=== PATIENT | male | born 1970 | race Two or more races ===

== ENCOUNTER 2020-06-11 00:11 | Emergency (ER) | payer OTHER, SELFPAY ==
--- NOTE | 2020-06-11 00:13 | ECG_ITS ---
Test Reason : CHEST PAIN Blood Pressure : / mmHG Vent. Rate : 090 BPM Atrial Rate : 090 BPM P-R Int : 130 ms QRS Dur : 098 ms QT Int : 374 ms P-R-T Axes : 061 -65 048 degrees QTc Int : 457 ms Normal sinus rhythm Left axis deviation Abnormal ECG When compared with ECG of 24-FEB-2019 00:32, No significant changes seen Referred By: Rick Alvarez Electronically Signed By:KATHERINE VIDAL MD
[2020-06-11 02:55] LABS: Carbon Dioxide 29 mmol/L (22-29); Potassium 4.5 mmol/l (3.3-5.1); Sodium 139 mmol/L (135-145)
[2020-06-11 02:56] LABS: Anion Gap 12 (12-20); Blood Urea Nitrogen 13 mg/dL (9-16); Chloride 103 mmol/L (96-108); Estimated Glomerular Filt Rate > 60; Glucose Random 108 mg/dL (60-115)
[2020-06-11 02:59] LABS: Troponin-I High Sensitivity < 3.5 ng/L (<3.5-35.0)
[2020-06-11 04:38] LABS: MANUAL DIFF FLAG NO
[2020-06-11 04:47] LABS: Basophils Percent Auto 0.4 % (0-2); Eosinophils Absolute Auto 0.5 X10*3/uL (0.0-0.4); Eosinophils Percent Auto 5.4 % (0-4); Hematocrit 46.8 % (42-52); Hemoglobin 15.5 g/dl (14.0-18.0); Imm Gran Abs Auto 0.05 X10*3/uL (0.00-0.03); Imm Gran Pct Auto 0.5 % (0.0-0.4); Lymphocytes Absolute Auto 2.3 X10*3/uL (1.2-4.9); Mean Corpuscular HGB Conc 33.1 g/dl (31.0-36.0); Mean Corpuscular Hemoglobin 26.7 pg (27.0-33.0); Mean Corpuscular Volume 80.7 fL (80-98); Mean Platelet Volume 10.6 fL (9.4-12.4); Monocytes Absolute Auto 0.8 X10*3/uL (0.1-1.2); Monocytes Percent Auto 8.6 % (2-11); Neutrophils Absolute Auto 6.1 X10*3/uL (2.0-8.3); Neutrophils Percent Auto 62.1 % (45-73); Platelet Count 176 X10*3/uL (160-400); White Blood Count 9.8 X10*3/uL (4.8-10.8)
== END 2020-06-11 02:00 | disposition home or self-care (01) ==
LOC: HO.ED 00:33
PROVIDERS: Emergency Provider Emergency Medicine; PCP Internal Medicine
DX: R07.9 Chest pain, unspecified (principal); I10 Essential (primary) hypertension; F41.9 Anxiety disorder, unspecified
CPT/HCPCS: 36415; 80051; 82565; 82947; 84484; 84520; 85025; 93005; 99283

== ENCOUNTER → 2020-08-26 11:55 | Outpatient (REF) | payer OTHER, SELFPAY ==
--- NOTE | 2020-08-26 11:57 | CA_ITS ---
Acquisition Time: 2020-08-26 10:52:43 Total Exercise Time: 00:06:17 Test Indications: CHEST PAIN Medications: LISINOPRIL METFORMIN ALBUTEROL Protocol: KENAN Max HR: 150 BPM 87% of Pred: 172 BPM Max BP: 140/080 mmHG Max Work Load: 7.4 METS exercise stress test using Kenan protocol, total of 6 min 17 sec. METS 7.4, and MAPHR up to 87 %. Pt tolerated well. Pt reports to be SOB (smokes one pack of cogaretts a day). Denies any CP. EKG without any arrhythmias, no ischemic changes seen during exercise or in recovery. Normotensive response to exercise. Test reviewed with Dr. Kimble. Referred By: Pari Orlando Overread By: Brijesh Okeefe
== END ==
LOC: HO.CARD 11:55
PROVIDERS: PCP Internal Medicine; Visit Provider Internal Medicine
DX: R07.9 Chest pain, unspecified (principal)
CPT/HCPCS: 93017

== ENCOUNTER 2020-11-18 07:07 | Outpatient (REF) | payer OTHER, SELFPAY ==
[2020-11-18 08:03] LABS: Alanine Aminotransferase 42 U/L (0-40); Albumin Level 4.7 g/dL (3.5-5.0); Alkaline Phosphatase 74 U/L (39-117); Anion Gap 12 (12-20); Aspartate Amino Transferase 21 U/L (5-37); Bilirubin Total 0.5 mg/dL (0.0-1.0); Blood Urea Nitrogen 12 mg/dL (9-16); Calcium 9.2 mg/dL (8.4-10.2); Carbon Dioxide 29 mmol/L (22-29); Chloride 102 mmol/L (96-108); Cholesterol 179 mg/dL; Estimated Glomerular Filt Rate > 60; Glucose Fasting 133 mg/dL (60-99); HDL Cholesterol 33 mg/dL; LDL Cholesterol Calculated 110 mg/dl; Potassium 4.3 mmol/L (3.3-5.1); Sodium 139 mmol/L (135-145); Total Protein 7.5 g/dL (6.5-8.0); Triglycerides 180 mg/dL
[2020-11-18 08:06] LABS: Creatinine Urine 190.98 mg/dL; Microalbum/Creatinine Ratio Ur 11.5 ug/mg cr
== END 2020-11-18 07:08 | disposition home or self-care (01) ==
LOC: HO.LAB 07:07
PROVIDERS: PCP Internal Medicine; Visit Provider Internal Medicine
DX: E11.9 Type 2 diabetes mellitus without complications (principal)
CPT/HCPCS: 36415; 80053; 80061; 82043

== ENCOUNTER 2021-04-20 01:10 | Emergency (ER) | payer OTHER, SELFPAY ==
[2021-04-20 01:25] VITALS: BP 140/103; PULSE 106; RESP 16; TEMP 36.8; O2SAT 97; BMI 35.4
--- NOTE | 2021-04-20 04:28 | ED.SKABFB ---
HPI - Skin/Abscess/Foreign Bdy General Chief complaint: Skin/Abscess/Foreign Body Stated complaint: cyst Time Seen by Provider: 04/20/21 03:41 Source: patient Mode of arrival: ambulatory Limitations: no limitations History of Present Illness HPI narrative: Patient with history of hydradenitis suppurative with multiple ER visits for abscesses this time noticed swelling in left armpit for last 4 days getting worse. No fever or chills Related Data Home Medications Medication Instructions Recorded Confirmed lancets 33 gauge #100 ea 08/17/20 08/17/20 Previous Rx's Medication Instructions Recorded blood sugar diagnostic (FreeStyle #50 ea 06/18/20 Lite Strips) lancets 28 gauge (FreeStyle #100 ea 06/18/20 Lancets) clotrimazole-betamethasone 1 1 appl TOPICAL BID 14 Days #15 g 08/17/20 %-0.05 % topical cream hydroxyzine HCl 50 mg tablet 50 mg PO Q6H #120 tab 11/12/20 dulaglutide 0.75 mg/0.5 mL 0.75 mg SUBCUT QWEEK 30 Days #2.5 11/28/20 subcutaneous pen injector ml ([facility]) lisinopril 5 mg tablet 5 mg PO DAILY #30 tab 11/29/20 metformin 1,000 mg tablet 1,000 mg PO BID #60 tab 11/29/20 omeprazole 20 mg capsule,delayed 20 mg PO DAILY #30 cap 11/29/20 release albuterol sulfate 90 mcg/actuation 2 puff INHALATION Q4-6H PRN #18 g 03/23/21 aerosol inhaler trazodone 50 mg tablet 50 mg PO BEDTIME PRN #30 tab 04/05/21 atorvastatin 20 mg tablet 20 mg PO DAILY 90 Days #90 tab 04/17/21 cephalexin 500 mg capsule 500 mg PO QID 10 Days #40 cap 04/20/21 doxycycline hyclate 100 mg tablet 100 mg PO BID #20 tab 04/20/21 fluconazole 100 mg tablet 100 mg PO DAILY #14 tab 04/20/21 (Diflucan) Allergies Allergy/AdvReac Type Severity Reaction Status Date / Time aspirin [ASPIRIN] Allergy Severe ANAPHYLAXIS Verified 08/17/20 15:13 ibuprofen [IBUPROFEN] Allergy Severe ANAPHYLAXIS Verified 08/17/20 15:13 acetaminophen [From Vicodin] Allergy Unknown chest pains Verified 08/17/20 15:13 hydrocodone [From Vicodin] Allergy Unknown chest pains Verified 08/17/20 15:13 Review of Systems Review of Systems: Yes all other systems are reviewed and are negative [facility] Past Medical History Medical History Chest pain Diabetes mellitus Essential hypertension GERD (gastroesophageal reflux disease) Surgical History History of appendectomy Family History Family History Father Colon cancer Mother Chronic mental illness Stroke Cancer Family/Other Chronic mental illness Paternal Grandfather Chronic mental illness Social History Social History Cigarette Packs Per Day: 1 Advance Directives: No Advance Directives Information Provided: No Physical Exam Vital Signs: Vital Signs: Last Vital Signs Temp 98.2 F 04/20/21 01:25 Pulse 106 H 04/20/21 01:25 Resp 16 04/20/21 01:25 BP 140/103 H 04/20/21 01:25 Pulse Ox 97 04/20/21 01:25 Body Mass Index 35.4 Const: General: no acute distress and well developed Orientation/consciousness: patient oriented x3 HENMT: Head: Yes normocephalic and Yes atraumatic Resp: Effort & Inspection: normal respiratory effort Auscultation: clear to auscultation bilaterally Cardio: Rate: regular rate Rhythm: regular rhythm Heart sounds: S1 normal heart sound present and S2 normal heart sound present Neuro: General: patient oriented x3, gait normal and no focal motor deficits Extrem: Shoulder/upper arm images: 1. 4 x 4 cm abscess in left armpit MDM - Skin/Abscess/Foreign Bdy MDM Narrative Medical decision making narrative: Patient with abscess in left axillary area from H. suppurative a incised with 10 size blade , a good amount of pua drained packed patient felt better Procedures Abscess I/D Site: upper extremity (Left axilla) and other Side (if applicable): left Local Anesthetic: lidocaine 2% Amount of anesthesia used (mL): 5 Technique: incised with blade Amount of fluid expressed (mL): 20 Packing used?: iodoform Discharge Plan Discharge Clinical Impression: Hidradenitis suppurativa of left axilla, Intertrigo Patient Disposition: Home, Self-Care Instructions: Skin Yeast Infection (ED), Hidradenitis Suppurativa (ED) Additional Instructions: Local care as advised Continue to apply Lotrimin lotion Take medication as prescribed Packing removal in 2 days Prescriptions: New fluconazole [Diflucan] 100 mg tablet 100 mg PO DAILY Qty: 14 RF: 0 cephalexin 500 mg capsule 500 mg PO QID 10 Days Qty: 40 RF: 0 doxycycline hyclate 100 mg tablet 100 mg PO BID Qty: 20 RF: 0 No Action (DME) FreeStyle Lite Strips Strip See Rx Instructions .ROUTE .MEDSUPPLY Qty: 50 RF: 11 (DME) lancets [FreeStyle Lancets] 28 gauge misc See Rx Instructions .ROUTE .MEDSUPPLY Qty: 100 RF: 11 hydroxyzine HCl 50 mg tablet 50 mg PO Q6H Qty: 120 RF: 6 dulaglutide [Trulicity] 0.75 mg/0.5 mL pen injector 0.75 mg subcut QWEEK 30 Days Qty: 2.5 RF: 6 lisinopril 5 mg tablet 5 mg PO DAILY Qty: 30 RF: 6 omeprazole 20 mg capsule,delayed release(DR/EC) 20 mg PO DAILY Qty: 30 RF: 6 metformin 1,000 mg tablet 1,000 mg PO BID Qty: 60 RF: 6 albuterol sulfate 90 mcg/actuation HFA aerosol inhaler 2 puff inhalation Q4-6H PRN (Reason: for wheezing) Qty: 18 RF: 6 trazodone 50 mg tablet 50 mg PO BEDTIME PRN (Reason: for insomnia) Qty: 30 RF: 4 atorvastatin 20 mg tablet 20 mg PO DAILY 90 Days Qty: 90 RF: 3 (DME) lancets 33 gauge misc See Rx Instructions gauge .ROUTE .MEDSUPPLY Qty: 100 RF: 0 clotrimazole-betamethasone 1-0.05 % cream 1 appl topical BID 14 Days Qty: 15 RF: 4 Interventions: ED Discharge Assessment Last Done: 04/20/21 05:42 Discharge Date/Time: 04/20/21 05:43
[2021-04-20] MEDS: cephALEXin 500 MG CAPSULE PO (04:49)
[2021-04-20] MEDS: Lidocaine HCl 2 % MPF 5 ML VIAL INFILTRATI (04:50)
[2021-04-20] MEDS: Fluconazole 150 MG TABLET PO (05:38)
== END 2021-04-20 05:43 | disposition home or self-care (01) ==
PROVIDERS: Emergency Provider Internal Medicine
DX: L73.2 Hidradenitis suppurativa (principal); L30.4 Erythema intertrigo
CPT/HCPCS: 10060; 99284

== ENCOUNTER 2021-06-15 13:14 | Outpatient (REF) | payer OTHER, SELFPAY ==
--- NOTE | ~2021-06-15 | XR_ITS ---
EXAMINATION: XR CHEST CLINICAL INFORMATION: R07.9 - Chest pain, unspecified COMPARISON: Chest radiographs 02/24/2019, 04/18/2015 TECHNIQUE: 2 views of the chest were obtained. FINDINGS: There is no pneumothorax, pleural reaction, infiltrate, or effusion. The costophrenic sulci are well-defined. The heart is normal in size. The hilar and mediastinal contours and bony structures are unremarkable. XR/XR chest 2V IMPRESSION: Unremarkable examination.
== END 2021-06-15 13:15 | disposition home or self-care (01) ==
LOC: HO.HMGCX 13:14
PROVIDERS: PCP Internal Medicine; Visit Provider Internal Medicine
DX: R07.9 Chest pain, unspecified (principal)
CPT/HCPCS: 71046

== ENCOUNTER 2021-07-15 13:37 | Outpatient (REF) | payer OTHER, SELFPAY ==
--- NOTE | 2021-07-15 17:31 | PFT_ITS ---
Forced vital capacity, FEV1, QAN85-01, and MVV are all normal. Post bronchodilator therapy, there is no change. Total lung capacity and residual volume normal. Diffusion capacity normal. CONCLUSION: Normal pulmonary function test. No evidence of obstructive or restrictive pulmonary disorder. MD ELVA Morris/MODL / [id number]
== END 2021-07-15 13:38 | disposition home or self-care (01) ==
LOC: HO.RESP 13:37
PROVIDERS: Visit Provider Internal Medicine
DX: R06.02 Shortness of breath (principal)
CPT/HCPCS: 94060; 94727; 94729

== ENCOUNTER → 2021-10-12 10:50 | Outpatient (BNVA) | payer OTHER, SELFPAY | PROVIDERS: PCP Internal Medicine; Referring Provider Internal Medicine; Visit Provider Nurse Practitioner Family | DX: K21.9 Gastro-esophageal reflux disease without esophagitis (principal); J02.9 Acute pharyngitis, unspecified; E66.9 Obesity, unspecified; Z68.35 Body mass index [BMI] 35.0-35.9, adult | CPT/HCPCS: 99202 ==

== ENCOUNTER 2021-10-29 08:37 | Outpatient (REF) | payer OTHER, SELFPAY ==
[2021-10-29 09:05] LABS: MANUAL DIFF FLAG NO
[2021-10-29 09:31] LABS: Basophils Absolute Auto 0.1 X10*3/uL (0.0-0.2); Basophils Percent Auto 0.4 % (0-2); Eosinophils Percent Auto 0.3 % (0-4); Hematocrit 49.4 % (42.0-52.0); Hemoglobin 16.2 g/dl (14.0-18.0); Imm Gran Abs Auto 0.06 X10*3/uL (0.00-0.03); Imm Gran Pct Auto 0.4 % (0.0-0.4); Lymphocytes Absolute Auto 1.9 X10*3/uL (1.2-4.9); Lymphocytes Percent Auto 13.6 % (20-40); Mean Corpuscular HGB Conc 32.8 g/dl (31.0-36.0); Mean Corpuscular Hemoglobin 25.8 pg (27.0-33.0); Mean Corpuscular Volume 78.8 fL (80.0-98.0); Mean Platelet Volume 10.9 fL (9.4-12.4); Monocytes Absolute Auto 0.9 X10*3/uL (0.1-1.2); Monocytes Percent Auto 6.5 % (2-11); Neutrophils Absolute Auto 10.9 x10*3/uL (2.0-8.3); Neutrophils Percent Auto 78.8 % (45-73); Platelet Count 217 X10*3/uL (160-400); Red Blood Count 6.27 X10*6/uL (4.60-5.80); Red Cell Distribution Width 12.5 % (11.0-16.0); White Blood Count 13.8 X10*3/uL (4.8-10.8)
[2021-10-29 09:36] LABS: Estimated Average Glucose 280 mg/dL; Hemoglobin A1c % 11.4 %
[2021-10-29 10:00] LABS: Alanine Aminotransferase 64 U/L (0-40); Albumin Level 4.6 g/dL (3.5-5.0); Alkaline Phosphatase 99 U/L (39-117); Anion Gap 15 (12-20); Aspartate Amino Transferase 28 U/L (5-37); Bilirubin Total 0.5 mg/dL (0.0-1.0); Blood Urea Nitrogen 15 mg/dL (9-16); Carbon Dioxide 24 mmol/L (22-29); Chloride 102 mmol/L (96-108); Cholesterol 130 mg/dL; Estimated Glomerular Filt Rate > 60; Glucose Random 315 mg/dL (60-115); HDL Cholesterol 28 mg/dL; LDL Cholesterol Calculated 78 mg/dl; Potassium 4.6 mmol/L (3.3-5.1); Sodium 136 mmol/L (135-145); Total Protein 7.4 g/dL (6.5-8.0); Triglycerides 120 mg/dL
[2021-11-03 11:06] LABS: Vitamin D 25-OH, D2 <4 ng/mL; Vitamin D 25-OH, D3 11 ng/mL; Vitamin D 25-OH, Total 11 ng/mL (30-100)
== END 2021-10-29 08:38 | disposition home or self-care (01) ==
LOC: HO.LAB 08:37
PROVIDERS: Absent Provider Internal Medicine; PCP Internal Medicine; Visit Provider Nurse Practitioner Family
DX: E11.9 Type 2 diabetes mellitus without complications (principal); E78.5 Hyperlipidemia, unspecified; E55.9 Vitamin D deficiency, unspecified; D64.9 Anemia, unspecified
CPT/HCPCS: 36415; 80053; 80061; 82306; 83036; 85025

== ENCOUNTER 2021-10-29 08:52 | Outpatient (REF) | payer OTHER, SELFPAY | END 2021-10-29 08:53 | disposition home or self-care (01) | LOC: HO.LNP 08:52 | PROVIDERS: Visit Provider Nurse Practitioner Family | DX: K21.9 Gastro-esophageal reflux disease without esophagitis (principal) | CPT/HCPCS: 87338 ==

== ENCOUNTER → 2021-11-08 15:29 | Outpatient (BNVA) | payer OTHER, SELFPAY | PROVIDERS: PCP Internal Medicine; Referring Provider Internal Medicine; Visit Provider Surgery | DX: K64.5 Perianal venous thrombosis (principal) | CPT/HCPCS: 46600; 99202 ==

== ENCOUNTER → 2021-11-16 15:51 | Outpatient (BNVA) | payer OTHER, SELFPAY | PROVIDERS: PCP Internal Medicine; Referring Provider Internal Medicine; Visit Provider Nurse Practitioner Family | DX: K21.9 Gastro-esophageal reflux disease without esophagitis (principal); K64.9 Unspecified hemorrhoids; A04.8 Other specified bacterial intestinal infections; Z79.899 Other long term (current) drug therapy | CPT/HCPCS: 99212 ==

== ENCOUNTER → 2022-03-15 13:24 | Outpatient (BNVA) | payer OTHER, SELFPAY | PROVIDERS: PCP Internal Medicine; Referring Provider Internal Medicine; Visit Provider Nurse Practitioner Family | DX: K21.9 Gastro-esophageal reflux disease without esophagitis (principal); A04.8 Other specified bacterial intestinal infections; Z79.899 Other long term (current) drug therapy | CPT/HCPCS: 99212 ==

== ENCOUNTER 2022-03-29 15:32 | Outpatient (REF) | payer OTHER, SELFPAY ==
[2022-03-30 11:39] LABS: H Pylori Breath Test Negative (Negative)
== END 2022-03-29 15:33 | disposition home or self-care (01) ==
LOC: HO.LNP 15:32
PROVIDERS: Visit Provider Nurse Practitioner Family
DX: A04.8 Other specified bacterial intestinal infections (principal)
CPT/HCPCS: 83013

== ENCOUNTER → 2022-12-22 13:45 | Outpatient (BNVA) | payer OTHER, SELFPAY | PROVIDERS: PCP Internal Medicine; Visit Provider Nurse Practitioner Family | DX: N40.0 Benign prostatic hyperplasia without lower urinary tract symptoms (principal); N39.43 Post-void dribbling | CPT/HCPCS: 51798; 99202 ==

== ENCOUNTER 2022-12-30 14:25 | Outpatient (REF) | payer OTHER, SELFPAY ==
--- NOTE | ~2022-12-30 | CT_ITS ---
EXAMINATION: CT CHEST SCREENING CLINICAL INFORMATION: Current smoker one pack per day for 20 years. COMPARISON: Chest 06/15/2021 TECHNIQUE: Multidetector volumetric CT imaging of the chest is performed without contrast using low dose technique. Additional 2D coronal and sagittal reformatted images and axial 3D maximum intensity projection (MIP) images are generated on the CT workstation. This CT examination was performed using dose optimization techniques as appropriate, variously including the following: *Automated exposure control *Adjustment of mA and/or kV according to patient size (this includes techniques or standardized protocols for targeted exams where dose is matched to indication/reason for exam; i.e. extremities or head) *Use of iterative reconstruction technique DLP: 85 mGy-cm FINDINGS: LUNGS: The lungs are well-expanded and clear of acute pneumonic consolidation. There are no pulmonary nodules, mass or ground-glass density. MEDIASTINUM: The thyroid lobes are symmetric and normal. The central trachea and bronchi are widely patent. No abnormal size mediastinal or hilar lymph nodes seen. No pericardial effusion. CORONARY ARTERY CALCIFICATION: None visualized on this study. PLEURA: There is no pleural effusion. No pleural mass or thickening. AXILLA: No lymphadenopathy. UPPER ABDOMEN: Visualized liver, spleen, pancreas and bilateral adrenal glands unremarkable. OSSEOUS STRUCTURES: No aggressive lytic or sclerotic process. CT/CT lung screening IMPRESSION: Unremarkable CT chest exam. ASSESSMENT: Lung-RADS category 1: Negative RECOMMENDATION: Low-dose annual CT chest.
== END 2022-12-30 14:26 | disposition home or self-care (01) ==
LOC: HO.CT 14:25
PROVIDERS: PCP Internal Medicine; Visit Provider Physician Assistant Medical
DX: Z12.2 Encounter for screening for malignant neoplasm of respiratory organs (principal); F17.210 Nicotine dependence, cigarettes, uncomplicated
CPT/HCPCS: 71271; G0296

== ENCOUNTER 2023-01-17 14:58 | Outpatient (REF) | payer OTHER, SELFPAY ==
--- NOTE | ~2023-01-17 | US_ITS ---
EXAMINATION: US RETROPERITONEAL COMPLETE (RENAL) CLINICAL INFORMATION: Postvoid dribbling. COMPARISON: None available. TECHNIQUE: Real-time imaging of the kidneys and bladder. FINDINGS: RIGHT KIDNEY: 11.6 x 6.6 x 5.7 cm (SAG x AP x TRV). The kidney is normal in size, contour, and echogenicity. Renal cortical thickness is normal. Lower pole 4 x 5 mm. No focal parenchymal lesions or hydronephrosis. LEFT KIDNEY: 12.9 x 6.5 x 5.1 cm (SAG x AP x TRV). The kidney is normal in size, contour, and echogenicity. Renal cortical thickness is normal. Two cysts measuring 8 mm in the lower pole with focal calcification and simple cyst in the upper pole measuring 2.5 cm. No renal calculi or hydronephrosis. BLADDER: Well distended and normal. Bilateral ureteral jets are not demonstrated. Prevoid bladder volume is 166 mL. Postvoid bladder volume is 1.34 mL. ADDITIONAL FINDINGS: Calcified slightly enlarged prostate gland. US/US retroperitoneal comp IMPRESSION: 1. Right renal stone. 2. Left renal cysts.
== END 2023-01-17 14:59 | disposition home or self-care (01) ==
LOC: HO.US 14:58
PROVIDERS: PCP Internal Medicine; Visit Provider Nurse Practitioner Family
DX: N39.43 Post-void dribbling (principal); N40.0 Benign prostatic hyperplasia without lower urinary tract symptoms
CPT/HCPCS: 76770

== ENCOUNTER 2023-01-18 07:54 | Outpatient (REF) | payer OTHER, SELFPAY ==
[2023-01-18 08:14] LABS: MANUAL DIFF FLAG NO
[2023-01-18 08:27] LABS: Basophils Absolute Auto 0.1 X10*3/uL (0.0-0.2); Basophils Percent Auto 0.6 % (0-2); Eosinophils Absolute Auto 0.7 X10*3/uL (0.0-0.4); Eosinophils Percent Auto 6.4 % (0-4); Hematocrit 47.6 % (42.0-52.0); Hemoglobin 15.5 g/dl (14.0-18.0); Imm Gran Abs Auto 0.03 X10*3/uL (0.00-0.03); Imm Gran Pct Auto 0.3 % (0.0-0.4); Lymphocytes Absolute Auto 2.5 X10*3/uL (1.2-4.9); Mean Corpuscular HGB Conc 32.6 g/dl (31.0-36.0); Mean Corpuscular Hemoglobin 25.4 pg (27.0-33.0); Mean Platelet Volume 10.3 fL (9.4-12.4); Monocytes Percent Auto 9.4 % (2-11); Neutrophils Absolute Auto 5.9 x10*3/uL (2.0-8.3); Neutrophils Percent Auto 58.3 % (45-73); Platelet Count 207 X10*3/uL (160-400); Red Cell Distribution Width 12.6 % (11.0-16.0); White Blood Count 10.1 X10*3/uL (4.8-10.8)
[2023-01-18 08:31] LABS: Estimated Average Glucose 217 mg/dL; Hemoglobin A1c % 9.2 %
[2023-01-18 08:52] LABS: Alanine Aminotransferase 42 U/L (0-40); Albumin Level 4.3 g/dL (3.5-5.0); Alkaline Phosphatase 72 U/L (39-117); Anion Gap 12 (12-20); Aspartate Amino Transferase 22 U/L (5-37); Bilirubin Total 0.6 mg/dL (0.0-1.0); Blood Urea Nitrogen 14 mg/dL (9-16); Calcium 9.1 mg/dL (8.4-10.2); Carbon Dioxide 24 mmol/L (22-29); Chloride 108 mmol/L (96-108); Cholesterol 114 mg/dL; Estimated Glomerular Filt Rate > 60; Glucose Fasting 152 mg/dL (60-99); HDL Cholesterol 26 mg/dL; Iron 96 mcg/dL (45-160); LDL Cholesterol Calculated 64 mg/dl; Percent Iron Saturation 39 % (15-50); Potassium 4.2 mmol/L (3.3-5.1); Sodium 140 mmol/L (135-145); Total Iron Binding Capacity 244 mcg/dL (228-428); Total Protein 6.6 g/dL (6.5-8.0); Triglycerides 124 mg/dL; Unsaturated Iron Binding 148 ug/dL
[2023-01-18 09:10] LABS: Prostate Specific Antigen 0.19 ng/mL (<0.05-4.0)
[2023-01-18 09:22] LABS: Folate 8.1 ng/mL (> or = 4.0); Vitamin B12 374 pg/mL (200-900); Vitamin D 25-OH Total 47.9 ng/mL (>30)
[2023-01-18 11:03] LABS: Creatinine Urine 93.53 mg/dL; Microalbum/Creatinine Ratio Ur 9.6 ug/mg cr
== END 2023-01-18 07:55 | disposition home or self-care (01) ==
LOC: HO.LAB 07:54
PROVIDERS: Nurse Practitioner Family; PCP Internal Medicine; Visit Provider Internal Medicine
DX: Z12.5 Encounter for screening for malignant neoplasm of prostate (principal); E11.40 Type 2 diabetes mellitus with diabetic neuropathy, unspecified; E53.8 Deficiency of other specified B group vitamins; E55.9 Vitamin D deficiency, unspecified; D64.9 Anemia, unspecified; E78.5 Hyperlipidemia, unspecified; N40.0 Benign prostatic hyperplasia without lower urinary tract symptoms; R21 Rash and other nonspecific skin eruption
CPT/HCPCS: 36415; 80053; 80061; 82043; 82306; 82607; 82746; 83036; 83540; 84153; 85025

== ENCOUNTER 2023-01-24 14:00 | Outpatient (RCR) | payer OTHER, SELFPAY ==
--- NOTE | 2022-12-21 16:02 | MHC.OT.EP ---
[address] [phone] Occupational Therapy Plan of Care Patient Name: Zelalem Ash Date of Evaluation: 12/21/22 Diagnosis: Left hand pain Pain Location: Pain in left thumb 1/10 Worst: 10/10 Pain Score: 1 Pain Scale Used: Numeric (0 - 10) Aggravating Factors: Forceful grasp, lifting/carrying Alleviating Factors: None reported Assessment: Pt is a 52 y/o male referred to OT with 3 week history of left hand pain primarily in MCP joint. Pt presents with pain with forceful grasp and decreased gross grasp and pinch strength on left, dominant hand. A 43% limitation is reported per the Quick DASH assessment. Pt. would benefit from skilled OT to address noted barriers and assist in return to PLOF. Frequency and Duration: The patient will be seen 2x/wk for 4 weeks Short Term Goals: Pain free with tool use and work related tasks IND with HEP Improve left gross grasp by 10# Quick DASH <25% IND with orthosis use (as needed) [place] Goals: Same as above Treatment Plan: Therapeutic Exercise Therapeutic Activity Home Exercise Program Splinting Patient Education Ultrasound Paraffin Fluidotherapy MHP Joint Mobilization Soft Tissue Mobilization Kinesiotaping Electronically Signed By: Arabella Peterson MS OTR/L Please Sign and return to therapist. Thank you once again for your referral.
== END 2023-05-18 09:19 | disposition home or self-care (01) ==
LOC: HO.OT 14:00
PROVIDERS: PCP Internal Medicine; Visit Provider Internal Medicine
DX: M79.642 Pain in left hand (principal)
CPT/HCPCS: 29130; 97033; 97035; 97110; 97165; 97760

== ENCOUNTER → 2023-03-13 12:28 | Outpatient (BNVA) | payer OTHER, SELFPAY | PROVIDERS: PCP Internal Medicine; Visit Provider Nurse Practitioner Family | DX: Z12.11 Encounter for screening for malignant neoplasm of colon (principal); K21.9 Gastro-esophageal reflux disease without esophagitis; D12.6 Benign neoplasm of colon, unspecified | CPT/HCPCS: 99212 ==

== ENCOUNTER 2023-03-27 16:25 | Outpatient (AMB) | payer OTHER, SELFPAY ==
--- NOTE | 2023-03-27 16:28 | MHC.PC.OV ---
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 Required: No Accompanied by: Self / Same As Patient Allergies aspirin [ASPIRIN] Allergy (Severe, Verified 03/27/23 16:40) ANAPHYLAXIS ibuprofen [IBUPROFEN] Allergy (Severe, Verified 03/27/23 16:40) ANAPHYLAXIS acetaminophen [From Vicodin] Allergy (Intermediate, Verified 03/27/23 16:40) chest pains hydrocodone [From Vicodin] Allergy (Intermediate, Verified 03/27/23 16:40) chest pains Medication List - Last Reconciled 03/27/23 by Pari Orlando MD albuterol sulfate 2.5 mg (3 mL) inhalation Q6H 30 days albuterol sulfate 90 mcg/actuation (Ventolin HFA) 2 puffs PO Q4-6H PRN atorvastatin 20 mg PO DAILY 90 days blood sugar diagnostic (FreeStyle Lite Strips) As directed cholecalciferol (vitamin D3) 50 mcg PO DAILY 90 days clotrimazole-betamethasone 1-0.05 % 1 appl topical BID 14 days cyclobenzaprine 10 mg PO BEDTIME PRN 90 days famotidine 40 mg PO BEDTIME hydroxyzine HCl 50 mg PO Q6H ketoconazole 2% appl topical BID lancets As directed lancets (FreeStyle Lancets) As directed lisinopril 10 mg PO DAILY 90 days metformin 1,000 mg PO BID nebulizer accessories (A.I.R.S Nebulizer Replacement kit) As directed nystatin 1 mL buccal DAILY 30 days omeprazole 40 mg PO DAILY semaglutide (Ozempic) 0.25 mg (0.4 mL) subcut QWEEK 30 days Tobacco use date assessed: 11/22/22 Dental Screening Dental Screen Date: 03/27/23 Did you have a dental visit in the last 12 months?: No Did you have a dental problem in the last 6 months where you did not have access to dental care?: No Was dental information given to patient?: Patient has dentist HPI HPI Comments History of Present Illness Details This is a 52-year-old male with diabetes mellitus type 2, hypertension, hyperlipidemia and GERD that comes today for follow-up on his conditions. Last A1c was elevated and I will increase Ozempic. Blood pressure stable. Last LDL was within goal. GERD stable with omeprazole and famotidine. No chest pain or shortness of breath. [facility] Medical History (Updated 03/27/23 @ 17:28 by Pari Orlando MD) Asthma Diabetes mellitus Essential hypertension Family history of colon cancer GERD (gastroesophageal reflux disease) History of Helicobacter pylori infection (~2021) Hypovitaminosis D Nicotine dependence, cigarettes, uncomplicated Obesity (BMI 30.0-34.9) Primary insomnia Pure hypercholesterolemia Thrombosed external hemorrhoid Tubular adenoma of colon (~2015) Surgical History History of appendectomy History of colonoscopy Family History Father Colon cancer Mother Chronic mental illness Stroke Cancer Family/Other Chronic mental illness Substance use disorder Paternal Grandfather Chronic mental illness Social History Household Members: Spouse Housing: House Alcohol intake: current Patient Tobacco Use Status: Current everyday Tobacco user Tobacco use type: Cigarette Cigarettes Per Day: 10 Years Smoked: (current smoker - onset 32yo, 1ppd x 20yrs, now 1/2ppd - 20pyh) Packs per year/per ci.00 e-Cigarette/Vaping Use: Never Used Second Hand Smoke Exposure: No service: No Current occupational status: employed Current occupational exposures/hazards: No Cognitive needs: No Hearing needs: No Vision needs: No Questionnaire Thrive Questionnaire Date Thrive assessed: 11/22/22 ERNESTO-7 AMB Questionnaire ERNESTO-7 Date ERNESTO - 7 assessed: 11/22/22 Source: Developed by Drs. Sidney Rendon, Alesia Baker, Brien Cedeno and colleagues, with an educational marine from [employer]. Review of Systems Const All systems reviewed & are unremarkable except as noted in HPI and below Eyes Reports no additional complaints, Denies change in vision and Denies other visual disturbances Card Denies chest pain at rest, Denies chest pain with activity, Denies edema, Denies irregular heart rhythm, Denies claudication, Denies dyspnea, Denies dyspnea on exertion, Denies orthopnea, Denies paroxysmal nocturnal dyspnea and Denies slow heart rate Resp Denies cough, Denies dyspnea and Denies dyspnea on exertion GI Denies abdominal pain, Denies change in bowel habits, Denies excessive flatus, Denies nausea and Denies vomiting Denies urinary hesitancy, Denies urinary incontinence and Denies urinary urgency Musc Denies abnormal gait, Denies atrophy, Denies deformity and Denies limited range of motion Skin/Breast Denies bleeding lesions, Denies changing lesions and Denies rash Neuro Denies abnormal gait and Denies lack of coordination Physical exam (Primary Care) Vital Signs: Last Vital Signs BP 136/82 03/27/23 16:31 BMI result Body Mass Index 33.2 Tobacco/Smoking Status: Tobacco use Status Tobacco use date assessed 11/22/22 03/27/23 16:28 Patient Tobacco Use Status Current everyday Tobacco 03/27/23 16:28 Tobacco use type Cigarette 03/27/23 16:28 e-Cigarette/Vaping Use Never Used 03/27/23 16:28 Thrive Assessment: Date of Thrive Assessment Date Thrive assessed 11/22/22 03/27/23 16:28 Eyes General: appearance normal, both eyes and all related structures Eyelids: Yes eyelids normal Conjunctivae: conjunctivae normal Neck Neck: Yes normal visual inspection and Yes supple Resp Effort & Inspection: normal respiratory effort Auscultation: clear to auscultation bilaterally Cardio Jugular venous distension: no JVD Rate: regular rate Rhythm: regular rhythm Heart sounds: S1 normal heart sound present and S2 normal heart sound present Extrem General: Yes full ROM Assessment and Plan Assessment & Plan (1) Diabetes mellitus: Comment: (T2DM) Code(s): E11.9 - Type 2 diabetes mellitus without complications Plan: Continue metformin and Ozempic. A1c goal is equal or less than 7%. (2) Essential hypertension: Code(s): I10 - Essential (primary) hypertension Plan: Continue lisinopril. Blood pressure goal is equal or less than 130/80. (3) GERD (gastroesophageal reflux disease): Code(s): K21.9 - Gastro-esophageal reflux disease without esophagitis Qualifiers: Esophagitis presence: esophagitis presence not specified Qualified Code(s): K21.9 - Gastro-esophageal reflux disease without esophagitis Plan: Continue famotidine and omeprazole as needed. (4) Hyperlipidemia LDL goal <70: Code(s): E78.5 - Hyperlipidemia, unspecified Plan: Continue statins. LDL goal should be less than 70. Orders: Orders Vitamin B12 and Folate 4 Months E53.8 - Deficiency of other specified B group vitamins Comprehensive [place]. Panel Fast 4 Months E11.9 - Type 2 diabetes mellitus without complications Lipid Panel 4 Months E78.5 - Hyperlipidemia, unspecified Vitamin D 25-OH Total 4 Months E55.9 - Vitamin D deficiency, unspecified Magnesium 4 Months E83.42 - Hypomagnesemia Medications: New semaglutide (Ozempic) 1 mg (0.75 mL) subcut QWEEK 3.75 mL 1RF 30 days E11.9 - Type 2 diabetes mellitus without complications Refilled nebulizer accessories (A.I.R.S Nebulizer Replacement kit) As directed 1 ea 0RF J45.909 - Unspecified asthma, uncomplicated Discontinued cholecalciferol (vitamin D3) Discontinued Reason: Patient Completed Course 50 mcg PO DAILY 90 days 90 caps 1RF E55.9 - Vitamin D deficiency, unspecified semaglutide (Ozempic) for 4 weeks Discontinued Reason: Patient Completed Course 0.25 mg (0.4 mL) subcut QWEEK 30 days 2 mL 4RF E11.9 - Type 2 diabetes mellitus without complications Coding Level of Care Code Est Pt Level 4 (86323) Diagnoses Diabetes mellitus E11.9 Essential hypertension I10 GERD (gastroesophageal reflux disease) K21.9 Esophagitis presence: esophagitis presence not specified Hyperlipidemia LDL goal <70 E78.5 Time Spent (min) 22
[2023-03-27 16:31] VITALS: BP 136/82; BMI 33.2
== END 2023-03-27 18:11 | disposition home or self-care (01) ==
PROVIDERS: PCP Internal Medicine; Visit Provider Internal Medicine
DX: E11.9 Type 2 diabetes mellitus without complications (principal); I10 Essential (primary) hypertension; K21.9 Gastro-esophageal reflux disease without esophagitis; E78.5 Hyperlipidemia, unspecified
CPT/HCPCS: 99214

== ENCOUNTER 2023-05-30 17:45 | Emergency (ER) | payer OTHER, SELFPAY ==
--- NOTE | ~2023-05-30 | XR_ITS ---
EXAMINATION: XR CHEST CLINICAL INFORMATION: Chest pain COMPARISON: 06/15/2021 TECHNIQUE: 2 views of the chest were obtained. FINDINGS: No significant abnormality is noted involving the heart, lungs, mediastinum, bony thorax or soft tissues. XR/XR chest 2V IMPRESSION: Unremarkable examination.
--- NOTE | 2023-05-30 17:47 | ECG_ITS ---
Test Reason : high blood pressure Blood Pressure : / mmHG Vent. Rate : 094 BPM Atrial Rate : 094 BPM P-R Int : 146 ms QRS Dur : 090 ms QT Int : 386 ms P-R-T Axes : 045 -74 033 degrees QTc Int : 482 ms Normal sinus rhythm Left anterior fascicular block Possible Anterior infarct , age undetermined Abnormal ECG When compared with ECG of 11-JUN-2020 00:13, Borderline criteria for Anterior infarct are now Present Referred By: Generic ED Physician Electronically Signed By:YUDELKA TAMAYO
[2023-05-30 17:59] VITALS: BP 163/99; PULSE 93; RESP 18; TEMP 36.5; O2SAT 99; BMI 33.7
--- NOTE | 2023-05-30 18:00 | ED.CHESTPAIN ---
HPI - Chest Pain General Chief Complaint: Chest Pain Stated Complaint: Chest tightness/High blood pressure Time Seen by Provider: 05/30/23 23:52 Source: patient, family, RN notes reviewed, old records reviewed and aerial photograph interpreter Mode of arrival: ambulatory Limitations: no limitations History of Present Illness HPI narrative: 53-year-old male past medical history significant for obesity, hypertension, hyperlipidemia, diabetes, asthma, GERD presents for evaluation of chest pain Patient has had on and off chest pain for the last 2 days or so Patient reports that this afternoon his pain worsened after a nonsmoker argument with a customer He had some tingling in his left arm He continues to have these symptoms that are coming and going He checked his blood pressure and it was ?185/110. Patient reports he takes lisinopril 10 mg Patient denies any fevers, chills, cough, shortness of breath He believes his pain is related to ?gas. ? He is currently following with GI as he was told in the past he may have ?bacteria my stomach. ? He is also due to have a colonoscopy/endoscopy that is scheduled but he does not know the exact date Patient also reports he has been your frequently for last couple of days which is abnormal for him Related Data Home Medications Medication Instructions Recorded Confirmed lancets 33 gauge #100 ea 08/17/20 03/27/23 ketoconazole 2 % topical cream 1 appl topical BID 03/29/22 04/14/23 Previous Rx's Medication Instructions Recorded blood sugar diagnostic (FreeStyle #50 ea 06/18/20 Lite Strips) lancets 28 gauge (FreeStyle #100 ea 06/18/20 Lancets) clotrimazole-betamethasone 1 1 appl topical BID 14 days #15 08/17/20 %-0.05 % topical cream grams cyclobenzaprine 10 mg tablet 10 mg PO BEDTIME PRN muscle spasm 04/08/22 90 days #90 tabs nystatin 100,000 unit/mL oral 1 ml buccal DAILY 30 days #30 mL 11/22/22 suspension metformin 1,000 mg tablet 1,000 mg PO BID #60 tabs 12/17/22 famotidine 40 mg tablet 40 mg PO BEDTIME #90 tabs 01/04/23 omeprazole 40 mg capsule,delayed 40 mg PO DAILY #90 caps 01/04/23 release albuterol sulfate 2.5 mg/3 mL 2.5 mg (3 mL) inhalation Q6H 30 02/15/23 (0.083 %) solution for nebulization days #360 mL albuterol sulfate 90 mcg/actuation 2 puff PO Q4-6H PRN for wheezing 02/18/23 aerosol inhaler (Ventolin HFA) #18 grams nebulizer accessories (A.I.R.S #1 ea 03/27/23 Nebulizer Replacement kit) bisacodyl 5 mg tablet,delayed 10 mg (2 x 5 mg) PO ONCE 1 day #2 04/06/23 release (Dulcolax (bisacodyl)) tabs polyethylene glycol 3350 17 238 g PO ONCE 1 day #238 grams 04/06/23 gram/dose oral powder (Miralax) lisinopril 10 mg tablet 10 mg PO DAILY 90 days #90 tabs 04/23/23 semaglutide 1 mg/dose (4 mg/3 mL) 1 mg (0.75 mL) subcut QWEEK 30 05/04/23 subcutaneous pen injector (Ozempic) days #3.75 mL hydroxyzine HCl 50 mg tablet 50 mg PO Q6H #120 tabs 05/05/23 atorvastatin 20 mg tablet 20 mg PO DAILY 90 days #90 tabs 05/29/23 Allergies Allergy/AdvReac Type Severity Reaction Status Date / Time aspirin [ASPIRIN] Allergy Severe ANAPHYLAXIS Verified 03/27/23 16:40 ibuprofen [IBUPROFEN] Allergy Severe ANAPHYLAXIS Verified 03/27/23 16:40 acetaminophen [From Vicodin] Allergy Intermediate chest pains Verified 03/27/23 16:40 hydrocodone [From Vicodin] Allergy Intermediate chest pains Verified 03/27/23 16:40 Review of Systems Constitutional: Constitutional: Denies chills and Denies fever(s) ENT: Denies dizziness Cardiovascular: Cardiovascular: Reports chest pain and Denies dyspnea Respiratory: Respiratory: Denies cough and Denies dyspnea Gastrointestinal: Gastrointestinal: Denies abdominal pain, Denies nausea and Denies vomiting Musculoskeletal: Musculoskeletal: Denies back pain Integumentary/Breasts: Skin/Breast: Denies rash Neurologic: Denies dizziness PMFSH Past Medical History Medical History Asthma Diabetes mellitus Essential hypertension Family history of colon cancer GERD (gastroesophageal reflux disease) History of Helicobacter pylori infection (~2021) Hypovitaminosis D Nicotine dependence, cigarettes, uncomplicated Obesity (BMI 30.0-34.9) Primary insomnia Pure hypercholesterolemia Thrombosed external hemorrhoid Tubular adenoma of colon (~2015) Surgical History History of appendectomy History of colonoscopy Family History Family History Father Colon cancer Mother Chronic mental illness Stroke Cancer Family/Other Chronic mental illness Substance use disorder Paternal Grandfather Chronic mental illness Social History Social History Household Members: Spouse Housing: House Alcohol intake: current Patient Tobacco Use Status: Current everyday Tobacco user Tobacco use type: Cigarette Cigarettes Per Day: 10 Years Smoked: (current smoker - onset 32yo, 1ppd x 20yrs, now 1/2ppd - 20pyh) e-Cigarette/Vaping Use: Never Used Second Hand Smoke Exposure: No Advance Directives: No Advance Directives Information Provided: Yes service: No Current occupational status: employed Current occupational exposures/hazards: No Cognitive needs: No Hearing needs: No Vision needs: No Physical Exam Vital Signs: Vital Signs: Last Vital Signs Temp 98.3 F 05/31/23 00:11 Pulse 83 05/31/23 00:11 Resp 17 05/31/23 00:11 BP 157/89 H 05/31/23 00:11 Pulse Ox 98 05/31/23 00:11 O2 Del Method Room Air 05/31/23 00:11 BMI result Body Mass Index 33.7 Const: General: healthy appearing, comfortable, no acute distress, alert and awake Nutritional Appearance: well nourished Orientation/consciousness: patient oriented x3 HEENT: Head: Yes normocephalic and Yes atraumatic Eyes: Eyelids: Yes eyelids normal Conjunctivae: conjunctivae normal Sclerae: sclerae normal Corneas: corneas normal Pupils: Equal, round and reactive pupils present EOM: EOMs intact bilaterally Neck: Neck: Yes full ROM Chest: Chest palpation & inspection: normal palpation of entire chest wall and no crepitus Resp: Effort & Inspection: normal respiratory effort, able to speak in complete sentences and not labored Skin: General skin exam: elasticity normal Neuro: General: patient oriented x3 Cranial nerves: Yes Equal, round and reactive pupils present and Yes Bilaterally intact EOM present Cognition (Neuro): normal cognition Course Course Course Narrative: This is an RME: Additional HPI, ROS, PE not included below will be deferred to primary provider. This is a [id number]-male, with a hx of asthma, diabetes, hyperlipidemia, presenting to the ER with complaints of left sided chest pain starting yesterday. Reporting that he took his BP today and was elevated in the 180s/90s. Plan: EKG, labs, CXR Medical Decision Making Medical Decision Making [facility] Narrative: A 53 year year old male presents for evaluation of chest pain is been on off for the last 2 days. His EKG is normal sinus rhythm without ischemia, troponin is negative despite 2 days of pain. His chest x-ray is unremarkable. The patient's symptoms are most likely related to GI such as gastritis or GERD. Will treat with GI cocktail. Still pending a UA as the patient reports anxiety consistent with UTI. Patient ruled out for ACS at this time Differential Diagnosis Differential Diagnoses: The differential diagnosis associated with the presentation includes GERD Chest pain Costochondritis ACS UTI Admission/Observation Consideration of admission/observation: Escalation of care including admission/observation considered Workup largely unremarkable, therefore admission not warranted at this time Lab Data [facility] Lab Attestation statement: I reviewed the patient's lab results. Mild leukocytosis to 11.3, no anemia, normal platelet count. No electrolyte abnormalities. Glucose elevated to 214 with no evidence of DKA 05/30/23 18:19 05/30/23 18:20 Labs: Lab Results 05/30/23 05/30/23 Range/Units 18:19 18:20 WBC 11.3 H (4.8-10.8) X10*3/uL RBC 5.95 H (4.60-5.80) X10*6/uL Hgb 15.7 (14.0-18.0) g/dl Hct 47.3 (42.0-52.0) % MCV 79.5 L (80.0-98.0) fL MCH 26.4 L (27.0-33.0) pg MCHC 33.2 (31.0-36.0) g/dl RDW 13.1 (11.0-16.0) % Plt Count 187 (160-400) X10*3/uL MPV 10.9 (9.4-12.4) fL Immature Gran % (Auto) 0.3 (0.0-0.4) % Neut % (Auto) 72.4 (45-73) % Lymph % (Auto) 18.3 L (20-40) % [place] % (Auto) 5.9 (2-11) % Eos % (Auto) 2.7 (0-4) % Baso % (Auto) 0.4 (0-2) % Lymph # (Auto) 2.1 (1.2-4.9) X10*3/uL [place] # (Auto) 0.7 (0.1-1.2) X10*3/uL Eos # (Auto) 0.3 (0.0-0.4) X10*3/uL Baso # (Auto) 0.0 (0.0-0.2) X10*3/uL Abs Immat Gran (auto) 0.03 (0.00-0.03) X10*3/uL Absolute Neuts (auto) 8.2 (2.0-8.3) x10*3/uL Absolute Nucleated RBC 0.000 (0.0-0.012) X10*3/uL Nucleated RBC % (auto) 0.0 (0.0-0.2) /100WBC Sodium 137 (135-145) mmol/L Potassium 3.8 (3.3-5.1) mmol/L Chloride 105 (96-108) mmol/L Carbon Dioxide 23 (22-29) mmol/L Anion Gap 13 (12-20) BUN 10 (9-16) mg/dL Creatinine 0.80 (0.5-1.4) mg/dL Estim Creat Clear Calc 129.5 Estimated GFR > 60 Random Glucose 214 H (60-115) mg/dL Calcium 9.4 (8.4-10.2) mg/dL Total Bilirubin 0.3 (0.0-1.0) mg/dL Direct Bilirubin 0.1 (0.0-0.5) mg/dL AST 18 (5-37) U/L ALT 30 (0-40) U/L Alkaline Phosphatase 70 (39-117) U/L Troponin I High Sens < 2.7 (<3.5-35.0) ng/L Total Protein 6.9 (6.5-8.0) g/dL Albumin 4.2 (3.5-5.0) g/dL Independent Interpretation I performed an independent interpretation of an: EKG (Sinus rhythm at 94 beats per minute. No ST segment elevation or depressions.) and Plain X-Ray ( no acute infiltrate) Radiology Impression Discussion of test interpretation with radiology: I have reviewed the radiologist's reading. (No acute pathology) Discharge Plan Discharge Clinical Impression: Chest pain Patient Disposition: Home, Self-Care Instructions: Chest Pain (ED) Additional Instructions: Workup in the emergency department today was reassuring. This includes your blood work, EKG, chest x-ray Your symptoms may be related to GI etiology such as heartburn or gas Follow-up with your primary doctor and your GI doctor Prescriptions: No Action (DME) FreeStyle Lite Strips Strip See Rx Instructions .ROUTE .MEDSUPPLY Qty: 50 11RF Rx Instructions: As directed (DME) lancets [FreeStyle Lancets] 28 gauge misc See Rx Instructions .ROUTE .MEDSUPPLY Qty: 100 11RF Rx Instructions: As directed cyclobenzaprine 10 mg tablet 10 mg PO BEDTIME PRN (Reason: muscle spasm) 90 Days Qty: 90 0RF metformin 1,000 mg tablet 1,000 mg PO BID Qty: 60 6RF famotidine 40 mg tablet 40 mg PO BEDTIME Qty: 90 3RF omeprazole 40 mg capsule,delayed release(DR/EC) 40 mg PO DAILY Qty: 90 3RF albuterol sulfate 2.5 mg /3 mL (0.083 %) solution for nebulization 2.5 mg inhalation Q6H 30 Days Qty: 360 5RF albuterol sulfate [Ventolin HFA] 90 mcg/actuation HFA aerosol inhaler 2 puff PO Q4-6H PRN (Reason: for wheezing) Qty: 18 6RF bisacodyl [Dulcolax (bisacodyl)] 5 mg tablet,delayed release (DR/EC) 10 mg PO ONCE 1 Days Qty: 2 0RF Rx Instructions: take at noon the day before colonoscopy polyethylene glycol 3350 [Miralax] 17 gram/dose powder 238 g PO ONCE 1 Days Qty: 238 0RF Rx Instructions: Take as directed by mouth the day before your procedure. lisinopril 10 mg tablet 10 mg PO DAILY 90 Days Qty: 90 1RF Ozempic 1 mg/dose (4 mg/3 mL) pen injector 1 mg subcut QWEEK 30 Days Qty: 3.75 1RF hydroxyzine HCl 50 mg tablet 50 mg PO Q6H Qty: 120 6RF atorvastatin 20 mg tablet 20 mg PO DAILY 90 Days Qty: 90 3RF (DME) lancets 33 gauge misc See Rx Instructions .ROUTE .MEDSUPPLY Qty: 100 Rx Instructions: As directed clotrimazole-betamethasone 1-0.05 % cream 1 appl topical BID 14 Days Qty: 15 4RF (DME) A.I.R.S Nebulizer Replacement Kit See Rx Instructions .Route Qty: 1 0RF Rx Instructions: As directed nystatin 100,000 unit/mL suspension 1 ml buccal DAILY 30 Days Qty: 30 1RF Rx Instructions: administer 1/2 of dose in each side of the mouth ketoconazole 2 % cream 1 appl topical BID
[2023-05-30 18:24] LABS: MANUAL DIFF FLAG NO
[2023-05-30 18:27] LABS: Basophils Percent Auto 0.4 % (0-2); Eosinophils Absolute Auto 0.3 X10*3/uL (0.0-0.4); Eosinophils Percent Auto 2.7 % (0-4); Hematocrit 47.3 % (42.0-52.0); Hemoglobin 15.7 g/dl (14.0-18.0); Imm Gran Abs Auto 0.03 X10*3/uL (0.00-0.03); Imm Gran Pct Auto 0.3 % (0.0-0.4); Lymphocytes Absolute Auto 2.1 X10*3/uL (1.2-4.9); Lymphocytes Percent Auto 18.3 % (20-40); Mean Corpuscular HGB Conc 33.2 g/dl (31.0-36.0); Mean Corpuscular Hemoglobin 26.4 pg (27.0-33.0); Mean Corpuscular Volume 79.5 fL (80.0-98.0); Mean Platelet Volume 10.9 fL (9.4-12.4); Monocytes Absolute Auto 0.7 X10*3/uL (0.1-1.2); Monocytes Percent Auto 5.9 % (2-11); Neutrophils Absolute Auto 8.2 x10*3/uL (2.0-8.3); Neutrophils Percent Auto 72.4 % (45-73); Platelet Count 187 X10*3/uL (160-400); Red Blood Count 5.95 X10*6/uL (4.60-5.80); Red Cell Distribution Width 13.1 % (11.0-16.0); White Blood Count 11.3 X10*3/uL (4.8-10.8)
[2023-05-30 18:39] LABS: Alanine Aminotransferase 30 U/L (0-40); Albumin Level 4.2 g/dL (3.5-5.0); Alkaline Phosphatase 70 U/L (39-117); Anion Gap 13 (12-20); Aspartate Amino Transferase 18 U/L (5-37); Bilirubin Direct 0.1 mg/dL (0.0-0.5); Bilirubin Total 0.3 mg/dL (0.0-1.0); Blood Urea Nitrogen 10 mg/dL (9-16); Calcium 9.4 mg/dL (8.4-10.2); Carbon Dioxide 23 mmol/L (22-29); Chloride 105 mmol/L (96-108); Creatinine Clr Calc Pharmacy 129.5; Estimated Glomerular Filt Rate > 60; Glucose Random 214 mg/dL (60-115); Potassium 3.8 mmol/L (3.3-5.1); Sodium 137 mmol/L (135-145); Total Protein 6.9 g/dL (6.5-8.0)
[2023-05-30 19:11] LABS: Troponin-I High Sensitivity < 2.7 ng/L (<3.5-35.0)
[2023-05-31 00:11] VITALS: BP 157/89; PULSE 83; RESP 17; TEMP 36.8; O2SAT 98
[2023-05-31 01:34] LABS: Appearance Urine Clear; Color Urine Yellow; Glucose Urine UA >=1000 mg/dL (Negative); Leukocyte Esterase Urine Negative (Negative); Nitrite Urine Negative (Negative); Specific Gravity - Urine 1.025 (1.005-1.025); UMIC TRIGGER UACC YES; Urine Blood Negative (Negative); Urine Ketones Negative (Negative); Urine Protein Negative (Neg-Trace)
[2023-05-31 01:36] LABS: Bacteria Urine None Seen (None Seen); Hyaline Casts Urine 0-2 /LPF (0-2); RBC Urine 0-2 /HPF (0-2); Squamous Epithelial Cell Urine 0-2 /HPF (0-2); WBC Urine 0-5 /HPF (0-5)
[2023-05-31] MEDS: Magnesium Hydrox/Alum Hydrox 30 ML ORAL.SUSP PO (01:50)
[2023-05-31] MEDS: Lidocaine HCl Viscous 2 % 15 ML SOLUTION MUCOUS MEM (01:50)
[2023-05-31] MEDS: Ondansetron ODT 4 MG TAB.RAPDIS TRANSLINGU (01:50)
== END 2023-05-31 02:00 | disposition home or self-care (01) ==
PROVIDERS: Physician Assistant Medical; Emergency Provider Student in an Organized Health Care Education/Training Program; PCP Internal Medicine
DX: R07.9 Chest pain, unspecified (principal); E11.9 Type 2 diabetes mellitus without complications; I10 Essential (primary) hypertension; E78.5 Hyperlipidemia, unspecified; F17.210 Nicotine dependence, cigarettes, uncomplicated; Z79.899 Other long term (current) drug therapy
CPT/HCPCS: 36415; 71046; 80048; 80076; 81001; 84484; 85025; 93005; 99283; 99284

== ENCOUNTER 2023-11-08 23:30 | Emergency (ER) | payer OTHER, SELFPAY ==
--- NOTE | 2023-11-08 | ECG_ITS ---
Test Reason : CHEST PAIN Blood Pressure : / mmHG Vent. Rate : 105 BPM Atrial Rate : 105 BPM P-R Int : 146 ms QRS Dur : 086 ms QT Int : 360 ms P-R-T Axes : 050 -68 026 degrees QTc Int : 475 ms Sinus tachycardia Possible Left atrial enlargement Left anterior fascicular block Abnormal ECG When compared with ECG of 30-MAY-2023 18:14, No significant change was found Referred By: Generic ED Physician Electronically Signed By:VONDA BRYAN
[2023-11-08 23:40] VITALS: BP 154/100; PULSE 81; RESP 16; TEMP 36.9; O2SAT 98; BMI 35.4
[2023-11-08 23:46] LABS: MANUAL DIFF FLAG NO
[2023-11-08 23:47] LABS: Basophils Absolute Auto 0.1 X10*3/uL (0.0-0.2); Basophils Percent Auto 0.6 % (0-2); Eosinophils Absolute Auto 0.4 X10*3/uL (0.0-0.4); Hematocrit 45.6 % (42.0-52.0); Hemoglobin 15.6 g/dl (14.0-18.0); Imm Gran Abs Auto 0.06 X10*3/uL (0.00-0.03); Imm Gran Pct Auto 0.5 % (0.0-0.4); Lymphocytes Absolute Auto 2.5 X10*3/uL (1.2-4.9); Lymphocytes Percent Auto 19.6 % (20-40); Mean Corpuscular HGB Conc 34.2 g/dl (31.0-36.0); Mean Corpuscular Hemoglobin 26.3 pg (27.0-33.0); Mean Corpuscular Volume 76.8 fL (80.0-98.0); Mean Platelet Volume 10.6 fL (9.4-12.4); Monocytes Percent Auto 8.1 % (2-11); Neutrophils Absolute Auto 8.5 x10*3/uL (2.0-8.3); Neutrophils Percent Auto 68.2 % (45-73); Platelet Count 196 X10*3/uL (160-400); Red Blood Count 5.94 X10*6/uL (4.60-5.80); Red Cell Distribution Width 13.2 % (11.0-16.0); White Blood Count 12.5 X10*3/uL (4.8-10.8)
--- NOTE | 2023-11-09 00:06 | ED.CHESTPAIN ---
HPI - Chest Pain General Chief Complaint: Chest Pain Stated Complaint: Chest pain Time Seen by Provider: 11/09/23 00:06 Source: patient Mode of arrival: ambulatory Limitations: no limitations History of Present Illness HPI narrative: 53 year old male with a past medical history of GERD presents to the emergency department for complaints of epigastric pain one hour after eating dinner. Pt reports that he has had similar pain in the past and believes the pain is due to gas. He also reports posterior neck pain that radiates into the right chest. He denies any shortness of breath, dizziness, lightheadedness, weakness, or change in ROM. He states that he took his blood pressure at home and noted that it was high 170s/110s. Here in the ED pt's bp 157/89. Pertinent positives and negatives discussed in HPI Related Data Home Medications Medication Instructions Recorded Confirmed lancets 33 gauge #100 ea 08/17/20 03/27/23 ketoconazole 2 % topical cream 1 appl topical BID 03/29/22 04/14/23 Previous Rx's Medication Instructions Recorded blood sugar diagnostic (FreeStyle #50 ea 06/18/20 Lite Strips) lancets 28 gauge (FreeStyle #100 ea 06/18/20 Lancets) clotrimazole-betamethasone 1 1 appl topical BID 14 days #15 08/17/20 %-0.05 % topical cream grams cyclobenzaprine 10 mg tablet 10 mg PO BEDTIME PRN muscle spasm 04/08/22 90 days #90 tabs nystatin 100,000 unit/mL oral 1 ml buccal DAILY 30 days #30 mL 11/22/22 suspension famotidine 40 mg tablet 40 mg PO BEDTIME #90 tabs 01/04/23 omeprazole 40 mg capsule,delayed 40 mg PO DAILY #90 caps 01/04/23 release albuterol sulfate 2.5 mg/3 mL 2.5 mg (3 mL) inhalation Q6H 30 02/15/23 (0.083 %) solution for nebulization days #360 mL albuterol sulfate 90 mcg/actuation 2 puff PO Q4-6H PRN for wheezing 02/18/23 aerosol inhaler (Ventolin HFA) #18 grams nebulizer accessories (A.I.R.S #1 ea 03/27/23 Nebulizer Replacement kit) bisacodyl 5 mg tablet,delayed 10 mg (2 x 5 mg) PO ONCE 1 day #2 04/06/23 release (Dulcolax (bisacodyl)) tabs polyethylene glycol 3350 17 238 g PO ONCE 1 day #238 grams 04/06/23 gram/dose oral powder (Miralax) lisinopril 10 mg tablet 10 mg PO DAILY 90 days #90 tabs 04/23/23 hydroxyzine HCl 50 mg tablet 50 mg PO Q6H #120 tabs 05/05/23 atorvastatin 20 mg tablet 20 mg PO DAILY 90 days #90 tabs 05/29/23 metformin 1,000 mg tablet 1,000 mg PO BID #60 tabs 08/18/23 semaglutide 1 mg/dose (4 mg/3 mL) 1 mg (0.75 mL) subcut QWEEK 30 10/21/23 subcutaneous pen injector (Ozempic) days #3.75 mL Allergies Allergy/AdvReac Type Severity Reaction Status Date / Time aspirin [ASPIRIN] Allergy Severe ANAPHYLAXIS Verified 03/27/23 16:40 ibuprofen [IBUPROFEN] Allergy Severe ANAPHYLAXIS Verified 03/27/23 16:40 acetaminophen [From Vicodin] Allergy Intermediate chest pains Verified 03/27/23 16:40 hydrocodone [From Vicodin] Allergy Intermediate chest pains Verified 03/27/23 16:40 Review of Systems Review of Systems: Yes all other systems are reviewed and are negative [facility] Past Medical History Medical History Asthma Diabetes mellitus Essential hypertension Family history of colon cancer GERD (gastroesophageal reflux disease) History of Helicobacter pylori infection (~2021) Hypovitaminosis D Nicotine dependence, cigarettes, uncomplicated Obesity (BMI 30.0-34.9) Primary insomnia Pure hypercholesterolemia Thrombosed external hemorrhoid Tubular adenoma of colon (~2015) Surgical History History of appendectomy History of colonoscopy Family History Family History Father Colon cancer Mother Chronic mental illness Stroke Cancer Family/Other Chronic mental illness Substance use disorder Paternal Grandfather Chronic mental illness Social History Social History Household Members: Spouse Housing: House Alcohol intake: current Patient Tobacco Use Status: Current everyday Tobacco user Tobacco use type: Cigarette Cigarettes Per Day: 10 Years Smoked: (current smoker - onset 32yo, 1ppd x 20yrs, now 1/2ppd - 20pyh) e-Cigarette/Vaping Use: Never Used Second Hand Smoke Exposure: No Advance Directives: No Advance Directives Information Provided: Yes service: No Current occupational status: employed Current occupational exposures/hazards: No Cognitive needs: No Hearing needs: No Vision needs: No Physical Exam Vital Signs: Vital Signs: Last Vital Signs Temp 98.5 F 11/08/23 23:40 Pulse 81 11/08/23 23:40 Resp 16 11/08/23 23:40 BP 154/100 H 11/08/23 23:40 Pulse Ox 98 11/08/23 23:40 O2 Del Method Room Air 11/08/23 23:40 BMI result Body Mass Index 35.4 Nursing notes and vital signs reviewed. GENERAL APPEARANCE: A&0 x 4, generally well appearing, no acute distress HENMT: Normal to inspection, atraumatic, face symmetrical. Normal external ears, nose, and oropharynx clear. EYE: PERRLA, EOM intact, structures appear normal NECK: Supple without lymphadenopathy. No stiffness or restricted ROM. CHEST: Normal to inspection HEART: Normal rate and regular rhythm, normal S1/S2, no M/R/G LUNGS: LS CTA, moving air well. Able to speak in complete sentences. No crackles, wheezes, or rhonchi auscultated ABDOMEN: Soft, nontender, nondistended. Normal bowel sounds noted BACK: No CVAT, no obvious deformity EXTREMITIES: Moving all extremities without difficulty. No cyanosis, clubbing, or edema. Normal capillary refill. NEUROLOGICAL: Alert and oriented, moving all 4 extremities with equal strength. CN not formally tested but appearing grossly intact. Observed to ambulate with normal gait. Cognition normal SKIN: Warm and dry without any lesions, rash, or visible sores PSYCH: Cooperative, normal affect, normal thought process Medications Administered Discontinued Medications Generic Name Dose Route Start Last Admin Trade Name Freq PRN Reason Stop Dose Admin Al Hydroxide/Mg Hydroxide 30 ml 11/09/23 00:06 11/09/23 00:43 Magnesium Hydrox/Alum Hydrox 30 Ml Oral.Susp PO 11/09/23 00:07 30 ml ONCE ONE Administration Lidocaine HCl 15 ml 11/09/23 00:06 11/09/23 00:43 Lidocaine Hcl Viscous 2 % 15 Ml Solution MUCOUS MEM 11/09/23 00:07 15 ml ONCE ONE Administration Medical Decision Making Medical Decision Making [facility] Narrative: Old records reviewed for previous imaging, lab studies, ECGs, and notes. Additional HPI obtained from pt's friend. Patient was assessed the emergency department with no acute distress or toxicity noted. EKG completed. I have independently interpreted this EKG is sinus tachycardia with left fascicular block at 105 beats per minute with no signs of acute ischemia or ectopy. When compared to previous EKG completed on 05/30/2023, no significant changes were noted. Troponin 3.1 and heart score indicating low risk for ACS. Wells PE and DVT indicating low risk as well. Hematology showing leukocytosis with WBCs 12.5 no signs of acute anemia or thrombocytopenia. Chemistries showing hyperglycemia with no signs of organ dysfunction or electrolyte imbalance. LFTs and bilirubin unremarkable for hepatitis or cholecystitis. Patient reports moderate relief of symptoms after GI cocktail. Patient's symptoms most likely due to GERD. Patient educated follow-up with his primary care provider in addition to his GI specialist. Patient is safe for discharge at this time with plan for [id number] Tylenol and/or NSAID such as ibuprofen or naproxen for fever/discomfort with dosing as per packaging. HPI, PE, diagnostics, and plan discussed with patient and family with no unanswered questions at this time. Strict return precautions given to return to the emergency department with new, worsening, or concerning emergent symptoms. Recommended to follow-up with there primary care provider in 24-48 hours for further treatment and management. Differential Diagnosis Differential Diagnoses: The differential diagnosis associated with the presentation includes but not limited to ACS, PE, GERD, peptic ulcer disease, h. pylori, sepsis, malignancy Admission/Observation Consideration of admission/observation: Escalation of care including admission/observation considered but symptoms improved while in the emergency department Lab Data [facility] Lab Attestation statement: I reviewed the patient's lab results. 11/08/23 23:40 11/08/23 23:40 Labs: Lab Results 11/08/23 Range/Units 23:40 WBC 12.5 H (4.8-10.8) X10*3/uL RBC 5.94 H (4.60-5.80) X10*6/uL Hgb 15.6 (14.0-18.0) g/dl Hct 45.6 (42.0-52.0) % MCV 76.8 L (80.0-98.0) fL MCH 26.3 L (27.0-33.0) pg MCHC 34.2 (31.0-36.0) g/dl RDW 13.2 (11.0-16.0) % Plt Count 196 (160-400) X10*3/uL MPV 10.6 (9.4-12.4) fL Immature Gran % (Auto) 0.5 H (0.0-0.4) % Neut % (Auto) 68.2 (45-73) % Lymph % (Auto) 19.6 L (20-40) % Gaines % (Auto) 8.1 (2-11) % Eos % (Auto) 3.0 (0-4) % Baso % (Auto) 0.6 (0-2) % Lymph # (Auto) 2.5 (1.2-4.9) X10*3/uL Gaines # (Auto) 1.0 (0.1-1.2) X10*3/uL Eos # (Auto) 0.4 (0.0-0.4) X10*3/uL Baso # (Auto) 0.1 (0.0-0.2) X10*3/uL Abs Immat Gran (auto) 0.06 H (0.00-0.03) X10*3/uL Absolute Neuts (auto) 8.5 H (2.0-8.3) x10*3/uL Absolute Nucleated RBC 0.000 (0.0-0.012) X10*3/uL Nucleated RBC % (auto) 0.0 (0.0-0.2) /100WBC Sodium 138 (135-145) mmol/L Potassium 4.1 (3.3-5.1) mmol/L Chloride 106 (96-108) mmol/L Carbon Dioxide 24 (22-29) mmol/L Anion Gap 12 (12-20) BUN 16 (9-16) mg/dL Creatinine 1.12 (0.5-1.4) mg/dL Estim Creat Clear Calc 94.8 Estimated GFR > 60 Random Glucose 248 H (60-115) mg/dL Calcium 9.6 (8.4-10.2) mg/dL Total Bilirubin 0.4 (0.0-1.0) mg/dL AST 21 (5-37) U/L ALT 39 (0-40) U/L Alkaline Phosphatase 84 (39-117) U/L Troponin I High Sens 3.1 (<3.5-35.0) ng/L Total Protein 7.2 (6.5-8.0) g/dL Albumin 4.4 (3.5-5.0) g/dL Independent Interpretation I performed an independent interpretation of an: EKG Scores Heart Score History: -0- slightly suspicious ECG: -1- non specific repolarization disturbance Age: -1- >45 - <65 Risk factory: -1- 1 or 2 risk factors Troponin: -0- < or = normal limit Score: 3 Risk: 1.7% Wells DVT Alternative Dx as likely as or more likely than DVT: -2 Score: -2 2-tier Risk: unlikely risk (5%) 3-tier Risk: low risk (3%) Discharge Plan Discharge Clinical Impression: Chest pain, Hyperglycemia, Chronic GERD Patient Disposition: Home, Self-Care Instructions: Chest Pain (ED), Gastroesophageal Reflux Disease (ED), Diabetic Hyperglycemia (ED) Prescriptions: No Action (DME) FreeStyle Lite Strips Strip See Rx Instructions .ROUTE .MEDSUPPLY Qty: 50 11RF Rx Instructions: As directed (DME) lancets [FreeStyle Lancets] 28 gauge misc See Rx Instructions .ROUTE .MEDSUPPLY Qty: 100 11RF Rx Instructions: As directed cyclobenzaprine 10 mg tablet 10 mg PO BEDTIME PRN (Reason: muscle spasm) 90 Days Qty: 90 0RF famotidine 40 mg tablet 40 mg PO BEDTIME Qty: 90 3RF omeprazole 40 mg capsule,delayed release(DR/EC) 40 mg PO DAILY Qty: 90 3RF albuterol sulfate 2.5 mg /3 mL (0.083 %) solution for nebulization 2.5 mg inhalation Q6H 30 Days Qty: 360 5RF albuterol sulfate [Ventolin HFA] 90 mcg/actuation HFA aerosol inhaler 2 puff PO Q4-6H PRN (Reason: for wheezing) Qty: 18 6RF bisacodyl [Dulcolax (bisacodyl)] 5 mg tablet,delayed release (DR/EC) 10 mg PO ONCE 1 Days Qty: 2 0RF Rx Instructions: take at noon the day before colonoscopy polyethylene glycol 3350 [Miralax] 17 gram/dose powder 238 g PO ONCE 1 Days Qty: 238 0RF Rx Instructions: Take as directed by mouth the day before your procedure. lisinopril 10 mg tablet 10 mg PO DAILY 90 Days Qty: 90 1RF hydroxyzine HCl 50 mg tablet 50 mg PO Q6H Qty: 120 6RF atorvastatin 20 mg tablet 20 mg PO DAILY 90 Days Qty: 90 3RF metformin 1,000 mg tablet 1,000 mg PO BID Qty: 60 6RF Ozempic 1 mg/dose (4 mg/3 mL) pen injector 1 mg subcut QWEEK 30 Days Qty: 3.75 1RF (DME) lancets 33 gauge misc See Rx Instructions .ROUTE .MEDSUPPLY Qty: 100 Rx Instructions: As directed clotrimazole-betamethasone 1-0.05 % cream 1 appl topical BID 14 Days Qty: 15 4RF (DME) A.I.R.S Nebulizer Replacement Kit See Rx Instructions .Route Qty: 1 0RF Rx Instructions: As directed nystatin 100,000 unit/mL suspension 1 ml buccal DAILY 30 Days Qty: 30 1RF Rx Instructions: administer 1/2 of dose in each side of the mouth ketoconazole 2 % cream 1 appl topical BID Referrals: [facility] [Provider Group] Pari Mcduffie MD [Primary Care Provider] - Print Language: Barbadian
[2023-11-09 00:08] LABS: Troponin-I High Sensitivity 3.1 ng/L (<3.5-35.0)
[2023-11-09 00:16] LABS: Alanine Aminotransferase 39 U/L (0-40); Albumin Level 4.4 g/dL (3.5-5.0); Alkaline Phosphatase 84 U/L (39-117); Anion Gap 12 (12-20); Aspartate Amino Transferase 21 U/L (5-37); Bilirubin Total 0.4 mg/dL (0.0-1.0); Blood Urea Nitrogen 16 mg/dL (9-16); Calcium 9.6 mg/dL (8.4-10.2); Carbon Dioxide 24 mmol/L (22-29); Chloride 106 mmol/L (96-108); Creatinine Clr Calc Pharmacy 94.8; Estimated Glomerular Filt Rate > 60; Glucose Random 248 mg/dL (60-115); Potassium 4.1 mmol/L (3.3-5.1); Sodium 138 mmol/L (135-145); Total Protein 7.2 g/dL (6.5-8.0)
[2023-11-09] MEDS: Magnesium Hydrox/Alum Hydrox 30 ML ORAL.SUSP PO (00:43)
[2023-11-09] MEDS: Lidocaine HCl Viscous 2 % 15 ML SOLUTION MUCOUS MEM (00:43)
[2023-11-09 02:13] VITALS: BP 154/98; PULSE 84; RESP 17; TEMP 36.8; O2SAT 97
== END 2023-11-09 02:21 | disposition home or self-care (01) ==
PROVIDERS: Emergency Provider Student in an Organized Health Care Education/Training Program; PCP Internal Medicine
DX: R07.9 Chest pain, unspecified (principal); K21.9 Gastro-esophageal reflux disease without esophagitis; E11.65 Type 2 diabetes mellitus with hyperglycemia; I10 Essential (primary) hypertension
CPT/HCPCS: 36415; 80053; 84484; 85025; 93005; 99283

== ENCOUNTER → 2023-11-08 23:33 | Outpatient (BNV) | payer OTHER, SELFPAY | PROVIDERS: Emergency Provider Student in an Organized Health Care Education/Training Program; PCP Internal Medicine; Visit Provider Internal Medicine | DX: R00.0 Tachycardia, unspecified (principal) | CPT/HCPCS: 93010 ==

== ENCOUNTER 2023-12-13 12:27 | Outpatient (AMB) | payer OTHER, SELFPAY ==
[2023-12-13 12:35] VITALS: BP 160/102; BMI 33.7
--- NOTE | 2023-12-13 12:35 | MHC.PC.OV ---
Vital Signs 12/13/23 12:35 Height 5 ft 9 in Weight 228 lb BMI 33.7 BP 160/102 H Blood Pressure Location Lt brachial Position Sitting Intake Visit Reasons: Physical exam Intake Note: Patient here for a physical exam, problem with processing food after eating Director Phone Required: No Accompanied by: Self / Same As Patient Allergies aspirin [ASPIRIN] Allergy (Severe, Verified 12/13/23 12:47) ANAPHYLAXIS ibuprofen [IBUPROFEN] Allergy (Severe, Verified 12/13/23 12:47) ANAPHYLAXIS acetaminophen [From Vicodin] Allergy (Intermediate, Verified 12/13/23 12:47) chest pains hydrocodone [From Vicodin] Allergy (Intermediate, Verified 12/13/23 12:47) chest pains Medication List - Last Reconciled 12/13/23 by Pari Orlando MD albuterol sulfate 2.5 mg (3 mL) inhalation Q6H 30 days albuterol sulfate 90 mcg/actuation (Ventolin HFA) 2 puffs PO Q4-6H PRN atorvastatin 20 mg PO DAILY 90 days bisacodyl (Dulcolax (bisacodyl)) 10 mg (2 x 5 mg) PO ONCE 1 day blood sugar diagnostic (FreeStyle Lite Strips) As directed clotrimazole-betamethasone 1-0.05 % 1 appl topical BID 14 days cyclobenzaprine 10 mg PO BEDTIME PRN 90 days famotidine 40 mg PO BEDTIME hydroxyzine HCl 50 mg PO Q6H ketoconazole 2% 1 appl topical BID lancets As directed lancets (FreeStyle Lancets) As directed lisinopril 10 mg PO DAILY 90 days metformin 1,000 mg PO BID nebulizer accessories (A.I.R.S Nebulizer Replacement kit) As directed nystatin 1 mL buccal DAILY 30 days omeprazole 40 mg PO DAILY polyethylene glycol 3350 (Miralax) 238 grams PO ONCE 1 day semaglutide (Ozempic) 1 mg (0.75 mL) subcut QWEEK 30 days Tobacco use date assessed: 12/13/23 Dental Screening Dental Screen Date: 12/13/23 Did you have a dental visit in the last 12 months?: Yes Did you have a dental problem in the last 6 months where you did not have access to dental care?: No Was dental information given to patient?: Patient has dentist HPI HPI Comments History of Present Illness Details This is a 53-year-old male with mild major depression and diabetes mellitus type 2 that comes for his physical exam. He declines any medication for depression. A1c not on goal and he requires insulin but he declines the use of insulin. Blood pressure elevated and he takes his lisinopril half a tablet of 10 mg twice a day and I will increase it to 20 mg once a day. Blood pressure will be recheck by nurse navigator in 3 weeks. Has family history of colon cancer in first-degree relative and brother had cancer of the appendix. Colonoscopy in 2016 showed tubular adenoma of the colon and he was refer to Gastroenterology and was seen but no show to colonoscopy. Had H pylori positive in the past and as per patient he received treatment. Still has dyspepsia and GERD symptoms and I will recheck H pylori in stool. Will be refer again to Gastroenterology. Complains of memory loss and has no show multiple times and is not completely compliant with his medications. I will refer him to Neurology for that matter. He was very anxious today and said that he is anxious because he is alive. I offer something to sleep and he said that the last time I gave him something that makes him loopy therefore I will defer to give him something to sleep. He is severely dozed of while watching TV, lying down to rest in the afternoon, sitting and reading and sitting quietly after lunch with Farwell score Scale of 12 and sleep study will be order. [facility] Medical History (Updated 12/13/23 @ 13:45 by Pari Orlando MD) History of Helicobacter pylori infection (~2021) Nicotine dependence, cigarettes, uncomplicated Tubular adenoma of colon (~2015) Asthma Family history of colon cancer Thrombosed external hemorrhoid Hypovitaminosis D Pure hypercholesterolemia Obesity (BMI 30.0-34.9) Primary insomnia GERD (gastroesophageal reflux disease) Essential hypertension Diabetes mellitus Surgical History History of colonoscopy History of appendectomy Family History (Updated 12/13/23 @ 12:56 by Pari Orlando MD) Father Colon cancer Mother Chronic mental illness Stroke Cancer Family/Other Chronic mental illness Substance use disorder Paternal Grandfather Chronic mental illness Brother Cancer of appendix Social History Household Members: Spouse Housing: House Alcohol intake: current Patient Tobacco Use Status: Current everyday Tobacco user Tobacco use type: Cigarette Cigarettes Per Day: 10 Years Smoked: (current smoker - onset 32yo, 1ppd x 20yrs, now 1/2ppd - 20pyh) e-Cigarette/Vaping Use: Never Used Second Hand Smoke Exposure: No service: No Current occupational status: employed Current occupational exposures/hazards: No Cognitive needs: No Hearing needs: No Vision needs: No Questionnaire PHQ-9 Over the last 2 weeks, how often have you been bothered by any of the following problems? 1. Little interest or pleasure in doing things: several days 2. Feeling down, depressed, or hopeless: several days 3. Trouble falling or staying asleep, or sleeping too much: nearly every day 4. Feeling tired or having little energy: more than half the days 5. Poor appetite or overeating: not at all 6. Feeling bad about yourself - or that you are a failure or have let yourself or your family down: not at all 7. Trouble concentrating on things, such as reading the newspaper or watching television: not at all 8. Moving or speaking so slowly that other people could have noticed. Or the opposite - being so fidgety or restless that you have been moving around a lot more than usual: not at all 9. Thoughts that you would be better off or of hurting yourself in some way: not at all Total score: 7 Depression Screening Interpretation: Positive Depression Screening Follow-up: Existing condition Depression Screening Done: Yes 84733 - PHQ-9 Billing: Yes Source: Developed by Drs. Sidney Rendon, Alesia Baker, Brien Cedeno and colleagues, with an educational marine from [employer]. Thrive Questionnaire Date Thrive assessed: 12/13/23 I am a: Patient What is your living situation today?: I have a steady place to live Within the past 12 months, did the food you bought not last and you didn't have the money to get more?: Never true Within the past 12 months, did you worry whether your food would run out before you got money to buy more?: Never true Do you have trouble paying for medicines?: No Do you have trouble getting transportation to medical appointments?: No Do you have trouble paying your heating and electricity bill?: No Do you have trouble taking care of your child, family member or friend?: No Do you have trouble with day-to-day activities such as bathing, preparing meals, shopping, managing finances, etc.?: No Are you currently unemployed and looking for a job?: No Are you interested in more education?: No Please select the resources that you would like help with: None Currently or been in a relationship where the following occur: no concerns reported THRIVE Score: 0 AUDIT C Alcohol Use Questionnaire (AUDIT-C) 1. How often do you have a drink containing alcohol?: Monthly or less 2. How many drinks containing alcohol do you have on a typical day when you are drinking?: 1 or 2 3. How often do you have six or more drinks on one occasion?: Never Total Score: 1 Score Reviewed/Action Taken: No ERNESTO-7 AMB Questionnaire ERNESTO-7 Date ERNESTO - 7 assessed: 12/13/23 Feeling nervous, anxious, or on edge: 3 = Nearly every day Not being able to stop or control worryin = More than half the days Worrying too much about different things: 3 = Nearly every day Trouble relaxin = More than half the days Being so restless that it is hard to sit still: 0 = Not at all Becoming easily annoyed or irritable: 3 = Nearly every day Feeling afraid as if something awful might happen: 0 = Not at all Total ERNESTO-7 score (0-4 normal; 5-9 mild; 10-14 moderate; 15-21 severe): 13 Source: Developed by Drs. Sidney Rendon, Aelsia Baker, Brien Cedeno and colleagues, with an educational mraine from [employer]. ERNESTO-7 Assessment Billing ERNESTO-7 Assessment Tool: ERNESTO-7 Assessment 51924 Review of Systems Const All systems reviewed & are unremarkable except as noted in HPI and below Eyes Reports no additional complaints, Denies change in vision and Denies other visual disturbances Card Denies chest pain at rest, Denies chest pain with activity, Denies edema, Denies irregular heart rhythm, Denies claudication, Denies dyspnea, Denies dyspnea on exertion, Denies orthopnea, Denies paroxysmal nocturnal dyspnea and Denies slow heart rate Resp Denies cough, Denies dyspnea and Denies dyspnea on exertion GI Reports abdominal pain, Denies change in bowel habits, Reports excessive flatus, Reports early satiety, Reports dyspepsia, Reports heartburn, Denies nausea and Denies vomiting Denies urinary hesitancy, Denies urinary incontinence and Denies urinary urgency Physical exam (Primary Care) Vital Signs: Last Vital Signs BP 160/102 H 12/13/23 12:35 BMI result Body Mass Index 33.7 Tobacco/Smoking Status: Tobacco use Status Tobacco use date assessed 12/13/23 12/13/23 12:41 Patient Tobacco Use Status Current everyday Tobacco 12/13/23 12:41 Tobacco use type Cigarette 12/13/23 12:41 e-Cigarette/Vaping Use Never Used 12/13/23 12:41 PHQ-9: PHQ-9 Score PHQ-9: Total score 7 12/13/23 12:58 Depression Screening Interpretation: Positive Depression Screening Follow-up: Existing condition Thrive Assessment: Date of Thrive Assessment Date Thrive assessed 12/13/23 12/13/23 12:45 Currently or been in a relationship where the following occur: no concerns reported HENMT Head: Yes normal to inspection, Yes normocephalic and Yes atraumatic Ears: external ears normal Resp Effort & Inspection: normal respiratory effort Auscultation: clear to auscultation bilaterally Cardio Jugular venous distension: no JVD Rate: regular rate Rhythm: regular rhythm Heart sounds: S1 normal heart sound present and S2 normal heart sound present GI Inspection: Yes normal to inspection Palpation (GI): Soft to palpation and nontender Auscultation: normal bowel sounds Skin General skin exam: no rashes or lesions noted Neuro General: no focal motor deficits Extrem General: Yes full ROM Psych Affect: Anxious affect present Results AMB Hemoglobin A1c AMB Hemoglobin A1c 9.1 % Last Edit by LUCIANO Beth on 12/13/23 12:46 Results Reviewed Results Reviewed: Laboratory Last Values Hgb A1c (Clinic) 9.1 % (4.0-6.0) H 12/13/23 12:35 Assessment and Plan Assessment & Plan (1) Encounter for physical examination: Code(s): Z00.00 - Encounter for general adult medical examination without abnormal findings Plan: Repeat in a year. (2) Diabetes mellitus: Comment: (T2DM) Code(s): E11.9 - Type 2 diabetes mellitus without complications Plan: Continue metformin, Ozempic and Jardiance. A1c goal is equal or less than 7%. Patient declines insulin. (3) Mild major depression: Code(s): F32.0 - Major depressive disorder, single episode, mild Plan: Declines treatment. Orders: Orders AMB Hemoglobin A1c Today E11.9 - Type 2 diabetes mellitus without complications Lipid Panel Today E78.5 - Hyperlipidemia, unspecified Microalbumin, Random (w Creat) Today E11.9 - Type 2 diabetes mellitus without complications Complete Blood Count Auto Diff Today D72.829 - Elevated white blood cell count, unspecified PSA,Total (Free>4and<10) Today N40.0 - Benign prostatic hyperplasia without lower urinary tract symptoms, Z12.5 - Encounter for screening for malignant neoplasm of prostate Comprehensive [place]. Panel Fast Today E11.9 - Type 2 diabetes mellitus without complications Vitamin D 25-OH Total Today E55.9 - Vitamin D deficiency, unspecified H pylori Ag Stool Today E11.9 - Type 2 diabetes mellitus without complications, R19.7 - Diarrhea, unspecified RT home sleep study Today R40.0 - Somnolence Referrals Neurology Referral R41.3 - Other amnesia Gastroenterology Referral D12.6 - Benign neoplasm of colon, unspecified, K21.9 - Gastro-esophageal reflux disease without esophagitis Medications: New empagliflozin (Jardiance) 10 mg PO DAILY 90 days 90 tabs 1RF E11.9 - Type 2 diabetes mellitus without complications lisinopril 20 mg PO DAILY 90 days 90 tabs 1RF I10 - Essential (primary) hypertension pantoprazole 40 mg PO DAILY 90 days 90 tabs 1RF K21.9 - Gastro-esophageal reflux disease without esophagitis Discontinued lisinopril Discontinued Reason: Patient Completed Course 10 mg PO DAILY 90 days 90 tabs 1RF cyclobenzaprine Discontinued Reason: Patient Completed Course 10 mg PO BEDTIME 90 days PRN 90 tabs 0RF muscle spasm omeprazole Discontinued Reason: Patient Completed Course 40 mg PO DAILY 90 caps 3RF K21.9 - Gastro-esophageal reflux disease without esophagitis Coding Level of Care Code Est Pt Prev Care 40-64y(52493) Diagnoses Encounter for physical examination Z00.00 Diabetes mellitus E11.9 Mild major depression F32.0 Additional Codes ERNESTO-7 Assessment Billing - ERNESTO-7 Assessment Tool: ERNESTO-7 Assessment 57360 ([id number]) Time Spent (min) 35
== END 2023-12-13 13:11 | disposition home or self-care (01) ==
PROVIDERS: PCP Internal Medicine; Visit Provider Internal Medicine
DX: Z00.00 Encounter for general adult medical examination without abnormal findings (principal); E11.9 Type 2 diabetes mellitus without complications; F32.0 Major depressive disorder, single episode, mild; K21.9 Gastro-esophageal reflux disease without esophagitis
CPT/HCPCS: 83036; 99396

== ENCOUNTER → 2024-01-18 13:47 | Outpatient (REF) | payer OTHER, SELFPAY | LOC: HO.SL 13:47 | PROVIDERS: PCP Internal Medicine; Visit Provider Internal Medicine | DX: Z13.89 Encounter for screening for other disorder (principal) ==

== ENCOUNTER 2024-01-26 10:46 | Outpatient (AMB) | payer OTHER, SELFPAY ==
--- NOTE | 2024-01-26 11:00 | A.OFFVIS_ITS ---
Vital Signs 01/26/24 11:03 Height 5 ft 9 in Weight 217 lb BMI 32.0 BP 132/73 Blood Pressure Location Lt brachial Position Sitting Pulse 110 H Intake Visit Reasons: Gastroesophageal reflux disease (GERD) Intake Note: Patient follow up for GERD Patient denies any GI issues. 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 Staying upright for minimum 3 hours after meals discussed with patient. Continue omeprazole. Will send patient for upper endoscopy. Tubular adenoma of colon Patient will be booked for colonoscopy today Screen for colon cancer Patient will be booked for colonoscopy today as well as upper endoscopy. Denies any issues with anesthesia in the past. No history of sleep apnea. Not on any anticoagulation medication. No history of infectious diseases in the past or present. What to expect before during and after the procedure discussed with patient. Clear liquid diet stressed with patient. How to prep day before the procedure. Patient will do split prep with Dulcolax tablets at noon, have MiraLax prep at 17:00 and 2nd half at 22:00. Patient denies any cardiac or respiratory symptoms. I will see patient after the procedure, sooner on as needed basis. Patient is agreeable to this plan and verbalizes understanding of instructions. He was given the opportunity to ask questions and all questions answered. ? TODAY'S VISIT Patient is here today for follow-up. Patient never had colonoscopy or upper endoscopy booked unsure of what happened. Patient reports that he has been doing well. Occasional acid reflux on omeprazole. Denies dyspepsia, dysphagia or odynophagia. Patient states that he moves his bowels well without any issues. Currently is taking Ozempic for his unstable blood sugars and currently his blood sugars have been much better. Patient denies any abdominal pain or discomfort. Denies any issues with anesthesia in the past. Not on any anticoagulation medication. No history of sleep apnea. Takes lisinopril for blood pressure. [facility] History History of Helicobacter pylori infection (~2021) Nicotine dependence, cigarettes, uncomplicated Tubular adenoma of colon (~2015) Asthma Family history of colon cancer Thrombosed external hemorrhoid Hypovitaminosis D Pure hypercholesterolemia Obesity (BMI 30.0-34.9) Primary insomnia GERD (gastroesophageal reflux disease) Essential hypertension Diabetes mellitus Surgical History History of colonoscopy History of appendectomy Family History Father Colon cancer Mother Chronic mental illness Stroke Cancer Family/Other Chronic mental illness Substance use disorder Paternal Grandfather Chronic mental illness Brother Cancer of appendix Social History Household Members: Spouse Housing: House Alcohol intake: current Patient Tobacco Use Status: Current everyday Tobacco user Tobacco use type: Cigarette Cigarettes Per Day: 10 Years Smoked: (current smoker - onset 32yo, 1ppd x 20yrs, now 1/2ppd - 20pyh) e-Cigarette/Vaping Use: Never Used Second Hand Smoke Exposure: No service: No Current occupational status: employed Current occupational exposures/hazards: No Cognitive needs: No Hearing needs: No Vision needs: No Review of Systems Const Denies weight gain and Denies weight loss ENT Reports no additional complaints, Denies dysphagia and Denies odynophagia Card Reports no additional complaints Resp Reports no additional complaints GI Denies abdominal pain, Denies belching, Denies melena, Denies bloating, Denies change in bowel habits, Denies dysphagia, Denies excessive flatus, Denies dyspepsia, Reports heartburn (Occasional), Denies diarrhea, Denies loose stools, Denies nausea, Denies odynophagia and Denies vomiting Reports no additional complaints Musc Reports no additional complaints Neuro Reports no additional complaints Psych Reports no additional complaints Endo Reports no additional complaints Physical Exam Vital Signs: Last Vital Signs Pulse 110 H 01/26/24 11:03 BP 132/73 01/26/24 11:03 BMI result Body Mass Index 32.0 Const General: healthy appearing, no acute distress and well developed Nutritional Appearance: obese Orientation/consciousness: patient oriented x3 Resp Effort & Inspection: normal respiratory effort, able to speak in complete sentences, no tracheal deviation and symmetric chest movement Auscultation: clear to auscultation bilaterally Cardio Rate: regular rate GI Inspection: Yes normal to inspection, No distended and Yes obesity Palpation (GI): Soft to palpation, not firm, nontender and No hepatosplenomegaly present Auscultation: normal bowel sounds General: Yes no CVA tenderness Back/Spine/Pelvis Back: no CVA tenderness Skin General skin exam: elasticity normal, turgor normal and dry skin Neuro General: patient oriented x3 Psych Appearance: grossly normal Mental Status: mental status grossly normal Assessment & Plan Assessment & Plan (1) GERD (gastroesophageal reflux disease): Code(s): K21.9 - Gastro-esophageal reflux disease without esophagitis Category: Medical Qualifiers: Esophagitis presence: esophagitis presence not specified Qualified Code(s): K21.9 - Gastro-esophageal reflux disease without esophagitis (2) Tubular adenoma of colon: Onset Date: ~2015 Code(s): D12.6 - Benign neoplasm of colon, unspecified Category: Medical (3) Screen for colon cancer: Code(s): Z12.11 - Encounter for screening for malignant neoplasm of colon Plan Please book patient for procedure today. Patient is on lisinopril. New script for Ozempic to control blood sugars and tape patient is reporting to be doing well. Continue omeprazole daily. Avoid dietary triggers and late night snacking. Patient will go for upper endoscopy to rule out gastritis, esophagitis, duodenitis, gastric or peptic ulcer, Jacobsen's, H pylori. Patient denies any issues with anesthesia in the past. Family history of CRC. Not on any anticoagulation medication. No history of sleep apnea. Patient will follow-up in the office after the procedure, patient will call the office if he will have any GI concerning symptoms. What to expect before during and after procedure discussed with patient. Stressed the importance of clear liquid diet as well as good bowel prep. He is agreeable to plan of care and verbalizes understanding of instructions. He was given the opportunity to ask questions and all questions answered. Thank you for allowing me to participate in his care Medications: New bisacodyl (Dulcolax (bisacodyl)) take 4 tabs at noon the day before your colonoscopy 20 mg (4 x 5 mg) PO ONCE 4 tabs 0RF 1 day Z12.11 - Encounter for screening for malignant neoplasm of colon omeprazole 40 mg PO DAILY 90 caps 3RF K21.9 - Gastro-esophageal reflux disease without esophagitis Refilled polyethylene glycol 3350 (Miralax) Take as directed by mouth the day before your procedure. 238 grams PO ONCE 238 grams 0RF 1 day Discontinued pantoprazole Discontinued Reason: Duplicate 40 mg PO DAILY 90 days 90 tabs 1RF K21.9 - Gastro-esophageal reflux disease without esophagitis bisacodyl (Dulcolax (bisacodyl)) take at noon the day before colonoscopy Discontinued Reason: Patient Refused 10 mg (2 x 5 mg) PO ONCE 1 day 2 tabs 0RF Coding Level of Care Code Est Pt Level 3 (20943) Diagnoses Gastroesophageal reflux disease, unspecified whether esophagitis present K21.9 Esophagitis presence: esophagitis presence not specified Tubular adenoma of colon D12.6 Screen for colon cancer Z12.11 Time Spent (min) 25 Comment 15 minutes spent with patient and additional 10 minutes spent reviewing his records
[2024-01-26 11:03] VITALS: BP 132/73; PULSE 110; BMI 32.0
== END 2024-01-26 12:26 | disposition home or self-care (01) ==
PROVIDERS: PCP Internal Medicine; Visit Provider Nurse Practitioner Family
DX: K21.9 Gastro-esophageal reflux disease without esophagitis (principal); D12.6 Benign neoplasm of colon, unspecified; Z12.11 Encounter for screening for malignant neoplasm of colon
CPT/HCPCS: 99213

== ENCOUNTER → 2024-01-26 10:46 | Outpatient (BNVA) | payer OTHER, SELFPAY | PROVIDERS: PCP Internal Medicine; Visit Provider Nurse Practitioner Family | DX: Z12.11 Encounter for screening for malignant neoplasm of colon (principal); K21.9 Gastro-esophageal reflux disease without esophagitis; D12.6 Benign neoplasm of colon, unspecified | CPT/HCPCS: 99212 ==

== ENCOUNTER 2024-04-23 14:50 | Outpatient (AMB) | payer OTHER, SELFPAY ==
[2024-04-23 15:01] VITALS: BP 130/86; BMI 30.6
--- NOTE | 2024-04-23 15:01 | MHC.PC.OV ---
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 Required: No Accompanied by: Self / Same As Patient Allergies aspirin [ASPIRIN] Allergy (Severe, Verified 04/23/24 15:16) ANAPHYLAXIS ibuprofen [IBUPROFEN] Allergy (Severe, Verified 04/23/24 15:16) ANAPHYLAXIS acetaminophen [From Vicodin] Allergy (Intermediate, Verified 04/23/24 15:16) chest pains hydrocodone [From Vicodin] Allergy (Intermediate, Verified 04/23/24 15:16) chest pains Medication List - Last Reconciled 04/23/24 by Pari Orlando MD albuterol sulfate 2.5 mg (3 mL) inhalation Q6H 30 days albuterol sulfate 90 mcg/actuation (Ventolin HFA) 2 puffs PO Q4-6H PRN atorvastatin 20 mg PO DAILY 90 days bisacodyl (Dulcolax (bisacodyl)) 20 mg (4 x 5 mg) PO ONCE 1 day blood sugar diagnostic (FreeStyle Lite Strips) As directed clotrimazole-betamethasone 1-0.05 % 1 appl topical BID 14 days empagliflozin (Jardiance) 10 mg PO DAILY 90 days famotidine 40 mg PO BEDTIME hydroxyzine HCl 50 mg PO Q6H ketoconazole 2% 1 appl topical BID lancets As directed lancets (FreeStyle Lancets) As directed lisinopril 30 mg PO DAILY 90 days metformin 1,000 mg PO BID nebulizer accessories (A.I.R.S Nebulizer Replacement kit) As directed nystatin 1 mL buccal DAILY 30 days omeprazole 40 mg PO DAILY polyethylene glycol 3350 (Miralax) 238 grams PO ONCE 1 day semaglutide (Ozempic) 1 mg (0.75 mL) subcut QWEEK 30 days Tobacco use date assessed: 12/13/23 Dental Screening Dental Screen Date: 12/13/23 HPI HPI Comments History of Present Illness Details This is a 53-year-old male with diabetes mellitus type 2, hypertension, hyperlipidemia, GERD and asthma that comes today for follow-up on his conditions. A1c within goal and he has intentionally losing weight. Blood pressure stable. Lipid panel will be order and his LDL goal should be less than 70. GERD stable with PPIs. Will have endoscopy next month. Will also have colonoscopy next month. He use rescue inhaler less than once a month. Denies any chest pain or shortness on breath. [facility] [place] Medical History (Updated 04/23/24 @ 16:02 by Pari Orlando MD) History of Helicobacter pylori infection (~2021) Nicotine dependence, cigarettes, uncomplicated Tubular adenoma of colon (~2015) Asthma Family history of colon cancer Thrombosed external hemorrhoid Hypovitaminosis D Pure hypercholesterolemia Obesity (BMI 30.0-34.9) Primary insomnia GERD (gastroesophageal reflux disease) Essential hypertension Diabetes mellitus Surgical History History of colonoscopy History of appendectomy Family History Father Colon cancer Mother Chronic mental illness Stroke Cancer Family/Other Chronic mental illness Substance use disorder Paternal Grandfather Chronic mental illness Brother Cancer of appendix Social History (Updated 04/23/24 @ 15:22 by Pari Orlando MD) Household Members: Spouse Housing: House Alcohol intake: current Alcohol intake frequency: holidays/special occasions only Alcohol type: hard liquor Patient Tobacco Use Status: Current everyday Tobacco user Tobacco use type: Cigarette Cigarettes Per Day: 10 Years Smoked: (current smoker - onset 32yo, 1ppd x 20yrs, now 1/2ppd - 20pyh) e-Cigarette/Vaping Use: Never Used Second Hand Smoke Exposure: No service: No Current occupational status: employed Current occupational exposures/hazards: No Cognitive needs: No Hearing needs: No Vision needs: No Questionnaire Thrive Questionnaire Date Thrive assessed: 12/13/23 ERNESTO-7 AMB Questionnaire ERNESTO-7 Date ERNESTO - 7 assessed: 12/13/23 Source: Developed by Drs. Sidney Rendon, Alesia Baker, Brien Cedeno and colleagues, with an educational marine from [employer]. Review of Systems Const All systems reviewed & are unremarkable except as noted in HPI and below Card Denies chest pain at rest, Denies chest pain with activity, Denies edema, Denies irregular heart rhythm, Denies claudication, Denies dyspnea, Denies dyspnea on exertion, Denies orthopnea, Denies paroxysmal nocturnal dyspnea and Denies slow heart rate Resp Denies cough, Denies dyspnea and Denies dyspnea on exertion GI Denies abdominal pain, Denies change in bowel habits, Denies excessive flatus, Denies nausea and Denies vomiting Denies urinary hesitancy, Denies urinary incontinence and Denies urinary urgency Neuro Denies lack of coordination Physical exam (Primary Care) Vital Signs: Last Vital Signs BP 130/86 04/23/24 15:01 BMI result Body Mass Index 30.6 Tobacco/Smoking Status: Tobacco use Status Tobacco use date assessed 12/13/23 04/23/24 15:07 Patient Tobacco Use Status Current everyday Tobacco 04/23/24 15:22 Tobacco use type Cigarette 04/23/24 15:22 e-Cigarette/Vaping Use Never Used 04/23/24 15:22 Thrive Assessment: Date of Thrive Assessment Date Thrive assessed 12/13/23 04/23/24 15:07 Resp Effort & Inspection: normal respiratory effort Auscultation: clear to auscultation bilaterally Cardio Jugular venous distension: no JVD Rate: regular rate Rhythm: regular rhythm Heart sounds: S1 normal heart sound present and S2 normal heart sound present Extrem General: Yes full ROM Results AMB Hemoglobin A1c AMB Hemoglobin A1c 6.8 % Last Edit by LUCIANO Beth on 04/23/24 15:16 Results Reviewed Results Reviewed: Laboratory Last Values Hgb A1c (Clinic) 6.8 % (4.0-6.0) H 04/23/24 15:01 Assessment and Plan Assessment & Plan (1) Diabetes mellitus: Comment: (T2DM) Code(s): E11.9 - Type 2 diabetes mellitus without complications Qualifiers: Diabetes mellitus type: type 2 Diabetes mellitus termite control 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 A1c goal is equal or less than 7%. (2) Hyperlipidemia LDL goal <70: Code(s): E78.5 - Hyperlipidemia, unspecified Plan: Continue statins. Repeat lipid panel. LDL goal is less than 70. (3) Essential hypertension: Code(s): I10 - Essential (primary) hypertension Plan: Continue lisinopril. Blood pressure goal is equal or less than 130/80. (4) Asthma: Code(s): J45.909 - Unspecified asthma, uncomplicated Qualifiers: Asthma severity: mild Asthma persistence: persistent Asthma complication type: uncomplicated Qualified Code(s): J45.30 - Mild persistent asthma, uncomplicated Plan: Use rescue inhaler as needed. (5) GERD (gastroesophageal reflux disease): Code(s): K21.9 - Gastro-esophageal reflux disease without esophagitis Qualifiers: Esophagitis presence: esophagitis presence not specified Qualified Code(s): K21.9 - Gastro-esophageal reflux disease without esophagitis Plan: Continue PPIs. Orders: Orders AMB Hemoglobin A1c Today E11.9 - Type 2 diabetes mellitus without complications Lipid Panel Today E78.5 - Hyperlipidemia, unspecified Microalbumin, Random (w Creat) Today E11.9 - Type 2 diabetes mellitus without complications Comprehensive [place]. Panel Fast Today E11.9 - Type 2 diabetes mellitus without complications Coding Level of Care Code Est Pt Level 4 (70734) Complex EM visit Add On G2211 Diagnoses Type 2 diabetes mellitus without complication, without long-term current use of insulin E11.9 Diabetes mellitus type: type 2 Diabetes mellitus termite control servicer insulin use: without termite control servicer use Diabetes mellitus complication status: without complication Hyperlipidemia LDL goal <70 E78.5 Essential hypertension I10 Mild persistent asthma without complication J45.30 Asthma severity: mild Asthma persistence: persistent Asthma complication type: uncomplicated Gastroesophageal reflux disease, unspecified whether esophagitis present K21.9 Esophagitis presence: esophagitis presence not specified Time Spent (min) 21
== END 2024-04-23 15:32 | disposition home or self-care (01) ==
PROVIDERS: PCP Internal Medicine; Visit Provider Internal Medicine
DX: E11.69 Type 2 diabetes mellitus with other specified complication (principal); E78.5 Hyperlipidemia, unspecified; I10 Essential (primary) hypertension; J45.30 Mild persistent asthma, uncomplicated; K21.9 Gastro-esophageal reflux disease without esophagitis
CPT/HCPCS: 83036; 99214; G2211

== ENCOUNTER 2024-05-08 09:59 | Outpatient (REF) | payer OTHER, SELFPAY ==
[2024-05-08 10:16] LABS: MANUAL DIFF FLAG NO
[2024-05-08 10:39] LABS: Basophils Absolute Auto 0.1 X10*3/uL (0.0-0.2); Basophils Percent Auto 0.5 % (0-2); Eosinophils Absolute Auto 0.4 X10*3/uL (0.0-0.4); Hematocrit 48.5 % (42.0-52.0); Hemoglobin 16.1 g/dl (14.0-18.0); Imm Gran Abs Auto 0.04 X10*3/uL (0.00-0.03); Imm Gran Pct Auto 0.4 % (0.0-0.4); Lymphocytes Absolute Auto 1.9 X10*3/uL (1.2-4.9); Lymphocytes Percent Auto 17.9 % (20-40); Mean Corpuscular HGB Conc 33.2 g/dl (31.0-36.0); Mean Corpuscular Hemoglobin 26.5 pg (27.0-33.0); Mean Corpuscular Volume 79.9 fL (80.0-98.0); Mean Platelet Volume 10.3 fL (9.4-12.4); Monocytes Absolute Auto 0.7 X10*3/uL (0.1-1.2); Monocytes Percent Auto 7.1 % (2-11); Neutrophils Absolute Auto 7.3 x10*3/uL (2.0-8.3); Neutrophils Percent Auto 70.1 % (45-73); Platelet Count 208 X10*3/uL (160-400); Red Blood Count 6.07 X10*6/uL (4.60-5.80); Red Cell Distribution Width 13.2 % (11.0-16.0); White Blood Count 10.4 X10*3/uL (4.8-10.8)
[2024-05-08 11:18] LABS: Alanine Aminotransferase 23 U/L (0-40); Albumin Level 4.1 g/dL (3.5-5.0); Alkaline Phosphatase 59 U/L (39-117); Anion Gap 13 (12-20); Aspartate Amino Transferase 14 U/L (5-37); Bilirubin Total 0.5 mg/dL (0.0-1.0); Blood Urea Nitrogen 13 mg/dL (9-16); Calcium 9.8 mg/dL (8.4-10.2); Carbon Dioxide 24 mmol/L (22-29); Chloride 109 mmol/L (96-108); Cholesterol 114 mg/dL (<200); Estimated Glomerular Filt Rate > 60; Glucose Fasting 142 mg/dL (60-99); HDL Cholesterol 31 mg/dL (>40); LDL Cholesterol Calculated 60 mg/dL (<100); Potassium 3.5 mmol/L (3.3-5.1); Sodium 142 mmol/L (135-145); Total Protein 6.8 g/dL (6.5-8.0); Triglycerides 117 mg/dL (<150)
[2024-05-08 11:29] LABS: PSA,Total (Free>4and<10) 0.23 ng/mL (0.00-4.00)
[2024-05-08 11:37] LABS: Vitamin D 25-OH Total 38.3 ng/mL (>30)
[2024-05-08 11:45] LABS: Folate 7.1 ng/mL (> or = 4.0); Vitamin B12 224 pg/mL (200-900)
[2024-05-08 11:58] LABS: Creatinine Urine 136.27 mg/dL; Microalbum/Creatinine Ratio Ur 7.3 ug/mg cr (<30)
== END 2024-05-08 10:00 | disposition home or self-care (01) ==
LOC: HO.LAB 09:59
PROVIDERS: PCP Internal Medicine; Visit Provider Internal Medicine
DX: E11.9 Type 2 diabetes mellitus without complications (principal); E78.5 Hyperlipidemia, unspecified; E55.9 Vitamin D deficiency, unspecified; N40.0 Benign prostatic hyperplasia without lower urinary tract symptoms; D72.829 Elevated white blood cell count, unspecified; E53.8 Deficiency of other specified B group vitamins; E83.42 Hypomagnesemia; Z12.5 Encounter for screening for malignant neoplasm of prostate
CPT/HCPCS: 36415; 80053; 80061; 82043; 82306; 82570; 82607; 82746; 83735; 84153; 85025

== ENCOUNTER 2024-06-26 13:19 | Outpatient (AMB) | payer OTHER, SELFPAY ==
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
[2024-06-26 13:36] VITALS: BP 160/100; BMI 32.0
== END 2024-06-26 14:24 | disposition home or self-care (01) ==
PROVIDERS: PCP Internal Medicine; Visit Provider Psychiatry & Neurology Neurology
DX: R41.3 Other amnesia (principal)
CPT/HCPCS: 99203

== ENCOUNTER → 2024-06-26 13:19 | Outpatient (BNVA) | payer OTHER, SELFPAY | PROVIDERS: PCP Internal Medicine; Visit Provider Psychiatry & Neurology Neurology | DX: R41.3 Other amnesia (principal) | CPT/HCPCS: 99202 ==

== ENCOUNTER 2024-09-24 16:38 | Outpatient (AMB) | payer OTHER, SELFPAY ==
[2024-09-24 16:46] VITALS: BP 122/80; BMI 31.3
--- NOTE | 2024-09-24 16:46 | MHC.PC.OV ---
Vital Signs 09/24/24 16:46 Height 5 ft 9 in Weight 212 lb BMI 31.3 BP 122/80 Blood Pressure Location Lt brachial Position Sitting Intake Visit Reasons: dm, needs 30 minutes Intake Note: Patient here for a follow up DM Operator Automated Process Required: Yes Operator Automated Process Language: Corrections Sergeant Name: Pari Orlando MD Information Interpreted: non-clinical & clinical Accompanied by: Self / Same As Patient Allergies aspirin [ASPIRIN] Allergy (Severe, Verified 09/24/24 17:04) ANAPHYLAXIS ibuprofen [IBUPROFEN] Allergy (Severe, Verified 09/24/24 17:04) ANAPHYLAXIS acetaminophen [From Vicodin] Allergy (Intermediate, Verified 09/24/24 17:04) chest pains hydrocodone [From Vicodin] Allergy (Intermediate, Verified 09/24/24 17:04) chest pains Medication List - Last Reconciled 09/24/24 by Pari Orlando MD albuterol sulfate 2.5 mg (3 mL) inhalation Q6H 30 days albuterol sulfate 90 mcg/actuation (Ventolin HFA) 2 puffs PO Q4-6H PRN atorvastatin 20 mg PO DAILY 90 days bisacodyl (Dulcolax (bisacodyl)) 20 mg (4 x 5 mg) PO ONCE 1 day blood sugar diagnostic (FreeStyle Lite Strips) As directed clotrimazole-betamethasone 1-0.05 % 1 appl topical BID 14 days empagliflozin (Jardiance) 10 mg PO DAILY 90 days famotidine 40 mg PO BEDTIME hydroxyzine HCl 50 mg PO Q6H ketoconazole 2% 1 appl topical BID lancets As directed lancets (FreeStyle Lancets) As directed lisinopril 30 mg PO DAILY 90 days metformin 1,000 mg PO BID nebulizer accessories (A.I.R.S Nebulizer Replacement kit) As directed nystatin 1 mL buccal DAILY 30 days omeprazole 40 mg PO DAILY polyethylene glycol 3350 (Miralax) 238 grams PO ONCE 1 day semaglutide (Ozempic) 1 mg (0.75 mL) subcut QWEEK 30 days Tobacco use date assessed: 09/24/24 Dental Screening Dental Screen Date: 09/24/24 Did you have a dental visit in the last 12 months?: No Did you have a dental problem in the last 6 months where you did not have access to dental care?: No Was dental information given to patient?: Patient has dentist HPI HPI Comments History of Present Illness Details The patient is a 54-year-old male presenting with a primary concern of diabetes management. The patient reports an increase in A1c from 6.8 to 7.3, indicating a worsening of glycemic control. He has been attempting to self-manage his diabetes with Ozempic and other antidiabetic medications such as Jardiance. He discussed weight loss and current weight stabilization at 212 lbs, noting previous weight of 217 lbs but a past decrease of 40 lbs without active interventions. The patient's history of hyperlipidemia has been managed with atorvastatin 20 mg. He also manages hypertension with lisinopril, previously dosed at 30 mg, and is considering a change in dosing since achieving blood pressure control. The patient's allergic reactions include aspirin, ibuprofen, and vicodin. He mentioned no new symptoms of fatigue or exacerbation of previous allergic reactions. The patient self-reported some modifications in medication regimen to find suitable personal dosing. [facility] Medical History (Updated 09/24/24 @ 22:01 by Pari Orlando MD) Mild major depression Memory change Hyperlipidemia LDL goal <70 History of Helicobacter pylori infection (~2021) Nicotine dependence, cigarettes, uncomplicated Tubular adenoma of colon (~2015) Asthma Family history of colon cancer Thrombosed external hemorrhoid Hypovitaminosis D Obesity (BMI 30.0-34.9) Primary insomnia GERD (gastroesophageal reflux disease) Essential hypertension Diabetes mellitus Surgical History History of colonoscopy History of appendectomy Family History Father Colon cancer Mother Chronic mental illness Stroke Cancer Family/Other Chronic mental illness Substance use disorder Paternal Grandfather Chronic mental illness Brother Cancer of appendix Social History Household Members: Spouse Housing: House Alcohol intake: current Alcohol intake frequency: holidays/special occasions only Alcohol type: hard liquor Patient Tobacco Use Status: Current everyday Tobacco user Tobacco use type: Cigarette Cigarettes Per Day: 10 Years Smoked: (current smoker - onset 32yo, 1ppd x 20yrs, now 1/2ppd - 20pyh) Packs per year/per ci.00 e-Cigarette/Vaping Use: Never Used Second Hand Smoke Exposure: No service: No Current occupational status: employed Current occupational exposures/hazards: No Cognitive needs: No Hearing needs: No Vision needs: No Questionnaire Thrive Questionnaire Date Thrive assessed: 12/13/23 ERNESTO-7 AMB Questionnaire ERNESTO-7 Date ERNESTO - 7 assessed: 12/13/23 Source: Developed by Drs. Sidney Rendon, Alesia Baker, Brien Cedeno and colleagues, with an educational marine from [employer]. Review of Systems Const All systems reviewed & are unremarkable except as noted in HPI and below Card Denies chest pain at rest, Denies chest pain with activity, Denies edema, Denies irregular heart rhythm, Denies claudication, Denies dyspnea, Denies dyspnea on exertion, Denies orthopnea, Denies paroxysmal nocturnal dyspnea and Denies slow heart rate Resp Denies cough, Denies dyspnea and Denies dyspnea on exertion GI Denies abdominal pain, Denies change in bowel habits, Denies excessive flatus, Denies nausea and Denies vomiting Physical exam (Primary Care) Vital Signs: Last Vital Signs BP 122/80 09/24/24 16:46 BMI result Body Mass Index 31.3 BMI Assessment/Plan discussion: High BMI High, discussed plan: lifestyle, weight reduction, dietary and physical activity Tobacco/Smoking Status: Tobacco use Status Tobacco use date assessed 09/24/24 09/24/24 16:51 Patient Tobacco Use Status Current everyday Tobacco 09/24/24 16:51 Tobacco use type Cigarette 09/24/24 16:51 e-Cigarette/Vaping Use Never Used 09/24/24 16:51 Thrive Assessment: Date of Thrive Assessment Date Thrive assessed 12/13/23 09/24/24 16:51 Resp Effort & Inspection: normal respiratory effort Auscultation: clear to auscultation bilaterally Cardio Jugular venous distension: no JVD Rate: regular rate Rhythm: regular rhythm Heart sounds: S1 normal heart sound present and S2 normal heart sound present Extrem General: Yes full ROM Office Procedures Flu Questionnaire Does the patient have a severe egg allergy?: No Results AMB Hemoglobin A1c AMB Hemoglobin A1c 7.3 % Last Edit by LUCIANO Beth on 09/24/24 17:26 Immunizations Fluarix Triv [id number] (PF) 45 mcg (15 mcg x 3)/0.5 mL IM syringe Performing Provider: Pari Orlando MD [facility] Documented (not given) by: LUCIANO Beth on 09/24/24 17:25 Reason Not Given: Patient Refused Results Reviewed Results Reviewed: Laboratory Last Values Hgb A1c (Clinic) 7.3 % (4.0-6.0) H 09/24/24 16:46 Coding Level of Care Code Est Pt Level 4 (10638) Complex EM visit Add On G2211 Diagnoses Type 2 diabetes mellitus without complication, without long-term current use of insulin E11.9 Diabetes mellitus type: type 2 Diabetes mellitus terminal make up operator insulin use: without senior care use Diabetes mellitus complication status: without complication Essential hypertension I10 Hyperlipidemia LDL goal <70 E78.5 Obesity (BMI 30.0-34.9) E66.9 Time Spent (min) 21 Assessment & Plan Assessment & Plan (1) Diabetes mellitus: Comment: (T2DM) Code(s): E11.9 - Type 2 diabetes mellitus without complications Category: Medical Qualifiers: Diabetes mellitus type: type 2 Diabetes mellitus terminal make up operator insulin use: without terminal make up operator use Diabetes mellitus complication status: without complication Qualified Code(s): E11.9 - Type 2 diabetes mellitus without complications (2) Essential hypertension: Code(s): I10 - Essential (primary) hypertension Category: Medical (3) Hyperlipidemia LDL goal <70: Code(s): E78.5 - Hyperlipidemia, unspecified Category: Medical (4) Obesity (BMI 30.0-34.9): Code(s): E66.9 - Obesity, unspecified Category: Medical Plan - For diabetes mellitus, the patient will continue with current antidiabetic regimen, including Ozempic and Jardiance. Consider further evaluation of potential medication adjustment if needed. - For hyperlipidemia, continue atorvastatin. Evaluate lipid panel results at the next appointment. - For hypertension, consider lisinopril dosage adjustment based on improved control; offer trial reduction to 5 mg if clinical conditions permit. - Monitor weight and support continued weight loss endeavors to assist in diabetes management. - Address allergies by continuing avoidance of aspirin, ibuprofen, and vicodin. Patient was informed and verbally consented to the use of an ambient scribe for clinic note documentation during this visit. During the consultation, we discussed the increase in A1c levels and plans to manage diabetes more effectively. We reviewed the patient?s use of Ozempic and Jardiance and evaluated his current antihypertensive and lipid-lowering medications, discussing potential dose adjustments. We emphasized the importance of adherence to the medication regimen and regular monitoring of blood glucose levels. Provided guidance on lifestyle changes, diet, and exercise to support weight loss and overall health. Discussed potential adjustments in the medication regimen post further assessment. The patient understood and agreed with the management plan. Orders: Orders Influenza [id number] Immunization Today Z23 - Encounter for immunization Microalbumin, Random (w Creat) Today R80.9 - Proteinuria, unspecified Vitamin D 25-OH Total Today E55.9 - Vitamin D deficiency, unspecified AMB Hemoglobin A1c Today E11.9 - Type 2 diabetes mellitus without complications Lipid Panel Today E78.5 - Hyperlipidemia, unspecified Comprehensive [place]. Panel Fast Today E11.9 - Type 2 diabetes mellitus without complications Medications: New lisinopril 5 mg PO BID 60 tabs 6RF 30 days Discontinued lisinopril Discontinued Reason: Patient Completed Course 30 mg PO DAILY 90 days 90 tabs 0RF Patient Instructions: - Continue prescribed medications for diabetes, hypertension, and hyperlipidemia as directed. - Monitor blood glucose levels regularly and record them. - Maintain a balanced diet and exercise regularly to manage weight. - Avoid known allergens, including aspirin, ibuprofen, and vicodin. - Follow up for routine lab checks and further evaluation of A1c levels. - Contact the office if any adverse reactions to medications occur or if there are significant changes in health status.
== END 2024-09-24 17:44 | disposition home or self-care (01) ==
PROVIDERS: PCP Internal Medicine; Visit Provider Internal Medicine
DX: E11.9 Type 2 diabetes mellitus without complications (principal); I10 Essential (primary) hypertension; E78.5 Hyperlipidemia, unspecified; Z68.31 Body mass index [BMI] 31.0-31.9, adult; E66.9 Obesity, unspecified

== ENCOUNTER → 2024-09-24 16:38 | Outpatient (BNVA) | payer OTHER, SELFPAY | PROVIDERS: PCP Internal Medicine; Visit Provider Internal Medicine | DX: E11.9 Type 2 diabetes mellitus without complications (principal); E78.5 Hyperlipidemia, unspecified; I10 Essential (primary) hypertension; E66.9 Obesity, unspecified; E55.9 Vitamin D deficiency, unspecified; R80.9 Proteinuria, unspecified; Z68.31 Body mass index [BMI] 31.0-31.9, adult | CPT/HCPCS: 83036; 99212 ==

== ENCOUNTER 2024-12-17 14:26 | Outpatient (AMB) | payer OTHER, SELFPAY ==
--- NOTE | 2024-12-17 14:31 | MHC.PC.OV ---
Vital Signs 12/17/24 14:33 Height 5 ft 9 in Weight 214 lb BMI 31.6 BP 136/82 Blood Pressure Location Lt brachial Position Sitting Intake Visit Reasons: Annual Exam Intake Note: Patient here for an annual physical exam Window Maker Required: Yes Window Maker Language: Dope House Operator Helper Name: Pari Moya MD Information Interpreted: non-clinical & clinical Accompanied by: Self / Same As Patient Allergies aspirin [ASPIRIN] Allergy (Severe, Verified 12/17/24 14:40) ANAPHYLAXIS ibuprofen [IBUPROFEN] Allergy (Severe, Verified 12/17/24 14:40) ANAPHYLAXIS acetaminophen [From Vicodin] Allergy (Intermediate, Verified 12/17/24 14:40) chest pains hydrocodone [From Vicodin] Allergy (Intermediate, Verified 12/17/24 14:40) chest pains Medication List - Last Reconciled 12/17/24 by Pari Moya MD albuterol sulfate 2.5 mg (3 mL) inhalation Q6H 30 days albuterol sulfate 90 mcg/actuation (Ventolin HFA) 2 puffs PO Q4-6H PRN atorvastatin 20 mg PO DAILY 90 days bisacodyl (Dulcolax (bisacodyl)) 20 mg (4 x 5 mg) PO ONCE 1 day blood sugar diagnostic (FreeStyle Lite Strips) As directed clotrimazole-betamethasone 1-0.05 % 1 appl topical BID 14 days empagliflozin (Jardiance) 10 mg PO DAILY 90 days famotidine 40 mg PO BEDTIME hydroxyzine HCl 50 mg PO Q6H ketoconazole 2% 1 appl topical BID lancets As directed lancets (FreeStyle Lancets) As directed lisinopril 5 mg PO BID 30 days metformin 1,000 mg PO BID nebulizer accessories (A.I.R.S. Nebulizer Replacement kit) As directed nystatin 1 mL buccal DAILY 30 days omeprazole 40 mg PO DAILY polyethylene glycol 3350 (Miralax) 238 grams PO ONCE 1 day semaglutide (Ozempic) 1 mg (0.75 mL) subcut QWEEK 30 days Tobacco use date assessed: 09/24/24 Dental Screening Dental Screen Date: 09/24/24 HPI HPI Comments History of Present Illness Details The patient is a 54-year-old male presenting for physical exam. He has a notable history of diabetes mellitus, with an A1c of 7.3 documented less than three months ago. His treatment includes Metformin 500 mg twice daily and Ozempic 1 mg. The patient is also on Jardiance 10 mg. Hypertension is controlled with Lisinopril 5 mg twice daily. Hyperlipidemia is addressed with Atorvastatin. The patient has a familial predisposition to colon cancer; his father succumbed to it, yet the patient is currently declining further colonoscopy post his last procedure in 2016. He occasionally experiences GERD symptoms, managed with Omeprazole daily and sporadic Famotidine use, and has allergies to aspirin and ibuprofen. The patient smokes 10 cigarettes daily and drinks alcohol occasionally, primarily socially, with smoking quantities remaining consistent and alcohol intake reduced. They report no psychiatric symptoms such as depression or anxiety and confirm a history of appendectomy. - A history of colonoscopy in 2016, with the patient unwilling to pursue further screenings. - Vaccinations are up to date. - Regular A1c monitoring, last recorded at 7.3. - Lifestyle advice discussed regarding smoking cessation and moderated alcohol consumption. [facility] Medical History (Updated 12/17/24 @ 19:42 by Pari Moya MD) Mild major depression Memory change Hyperlipidemia LDL goal <70 History of Helicobacter pylori infection (~2021) Nicotine dependence, cigarettes, uncomplicated Tubular adenoma of colon (~2015) Asthma Family history of colon cancer Thrombosed external hemorrhoid Hypovitaminosis D Obesity (BMI 30.0-34.9) Primary insomnia GERD (gastroesophageal reflux disease) Essential hypertension Diabetes mellitus Surgical History History of colonoscopy History of appendectomy Family History Father Colon cancer Mother Chronic mental illness Stroke Cancer Family/Other Chronic mental illness Substance use disorder Paternal Grandfather Chronic mental illness Brother Cancer of appendix Social History Household Members: Spouse Housing: House Alcohol intake: current Alcohol intake frequency: holidays/special occasions only Alcohol type: hard liquor Patient Tobacco Use Status: Current everyday Tobacco user Tobacco use type: Cigarette Cigarettes Per Day: 10 Years Smoked: (current smoker - onset 32yo, 1ppd x 20yrs, now 1/2ppd - 20pyh) e-Cigarette/Vaping Use: Never Used Second Hand Smoke Exposure: No service: No Current occupational status: employed Current occupational exposures/hazards: No Cognitive needs: No Hearing needs: No Vision needs: No Questionnaire PHQ-9 Over the last 2 weeks, how often have you been bothered by any of the following problems? 1. Little interest or pleasure in doing things: not at all 2. Feeling down, depressed, or hopeless: not at all 3. Trouble falling or staying asleep, or sleeping too much: not at all 4. Feeling tired or having little energy: not at all 5. Poor appetite or overeating: not at all 6. Feeling bad about yourself - or that you are a failure or have let yourself or your family down: not at all 7. Trouble concentrating on things, such as reading the newspaper or watching television: not at all 8. Moving or speaking so slowly that other people could have noticed. Or the opposite - being so fidgety or restless that you have been moving around a lot more than usual: not at all 9. Thoughts that you would be better off or of hurting yourself in some way: not at all Total score: 0 Depression Screening Interpretation: Negative Depression Screening Done: Yes 13520 - PHQ-9 Billing: Yes Source: Developed by Drs. Sidney Rendon, Alesia Baker, Brien Cedeno and colleagues, with an educational marine from [employer]. Thrive Questionnaire Date Thrive assessed: 12/17/24 I am a: Patient What is your living situation today?: I have a steady place to live Within the past 12 months, did the food you bought not last and you didn't have the money to get more?: Never true Within the past 12 months, did you worry whether your food would run out before you got money to buy more?: Never true Do you have trouble paying for medicines?: No Do you have trouble getting transportation to medical appointments?: No Do you have trouble paying your heating and electricity bill?: No Do you have trouble taking care of your child, family member or friend?: No Do you have trouble with day-to-day activities such as bathing, preparing meals, shopping, managing finances, etc.?: No Are you currently unemployed and looking for a job?: No Are you interested in more education?: No Please select the resources that you would like help with: None Currently or been in a relationship where the following occur: No concerns reported THRIVE Score: 0 AUDIT C Alcohol Use Questionnaire (AUDIT-C) 1. How often do you have a drink containing alcohol?: Monthly or less 2. How many drinks containing alcohol do you have on a typical day when you are drinking?: 1 or 2 3. How often do you have six or more drinks on one occasion?: Never Total Score: 1 Score Reviewed/Action Taken: No ERNESTO-7 AMB Questionnaire ERNESTO-7 Date ERNESTO - 7 assessed: 12/17/24 Feeling nervous, anxious, or on edge: 0 = Not at all Not being able to stop or control worryin = Not at all Worrying too much about different things: 0 = Not at all Trouble relaxin = Not at all Being so restless that it is hard to sit still: 0 = Not at all Becoming easily annoyed or irritable: 0 = Not at all Feeling afraid as if something awful might happen: 0 = Not at all Total ERNESTO-7 score (0-4 normal; 5-9 mild; 10-14 moderate; 15-21 severe): 0 Source: Developed by Drs. Sidney Rendon, Alesia Baker, Brien Cedeno and colleagues, with an educational marine from [employer]. ERNESTO-7 Assessment Billing ERNESTO-7 Assessment Tool: ERNESTO-7 Assessment 98853 Review of Systems Const All systems reviewed & are unremarkable except as noted in HPI and below Card Denies chest pain at rest, Denies chest pain with activity, Denies edema, Denies irregular heart rhythm, Denies claudication, Denies dyspnea, Denies dyspnea on exertion, Denies orthopnea, Denies paroxysmal nocturnal dyspnea and Denies slow heart rate Resp Denies cough, Denies dyspnea and Denies dyspnea on exertion GI Denies abdominal pain, Denies change in bowel habits, Denies excessive flatus, Denies nausea and Denies vomiting Denies urinary hesitancy, Denies urinary incontinence and Denies urinary urgency Musc Denies abnormal gait, Denies atrophy, Denies deformity and Denies limited range of motion Skin/Breast Denies bleeding lesions, Denies changing lesions and Denies rash Neuro Denies abnormal gait, Denies behavioral changes, Denies confusion and Denies lack of coordination Psych Denies behavioral changes and Denies confusion Physical exam (Primary Care) Vital Signs: Last Vital Signs BP 136/82 12/17/24 14:33 BMI result Body Mass Index 31.6 BMI Assessment/Plan discussion: High BMI High, discussed plan: lifestyle, weight reduction, dietary and physical activity Tobacco/Smoking Status: Tobacco use Status Tobacco use date assessed 09/24/24 12/17/24 14:38 Patient Tobacco Use Status Current everyday Tobacco 12/17/24 14:38 Tobacco use type Cigarette 12/17/24 14:38 e-Cigarette/Vaping Use Never Used 12/17/24 14:38 PHQ-9: PHQ-9 Score PHQ-9: Total score 0 12/17/24 14:41 Depression Screening Interpretation: Negative Thrive Assessment: Date of Thrive Assessment Date Thrive assessed 12/17/24 12/17/24 14:38 Currently or been in a relationship where the following occur: No concerns reported Const General: No confusion Orientation/consciousness: patient oriented x3 and No confusion HENMT Head: Yes normal to inspection, Yes normocephalic and Yes atraumatic Ears: external ears normal Eyes General: appearance normal, both eyes and all related structures Eyelids: Yes eyelids normal Conjunctivae: conjunctivae normal Neck Neck: Yes normal visual inspection and Yes supple Resp Effort & Inspection: normal respiratory effort Auscultation: clear to auscultation bilaterally Cardio Jugular venous distension: no JVD Rate: regular rate Rhythm: regular rhythm Heart sounds: S1 normal heart sound present and S2 normal heart sound present GI Inspection: Yes normal to inspection Palpation (GI): Soft to palpation and nontender Auscultation: normal bowel sounds Skin General skin exam: no rashes or lesions noted Neuro General: patient oriented x3, no focal motor deficits and No confusion Extrem General: Yes full ROM Psych Appearance: grossly normal Coding Level of Care Code Est Pt Prev Care 40-64y(03404) Diagnoses Physical exam Z00.00 Type 2 diabetes mellitus without complication, without long-term current use of insulin E11.9 Diabetes mellitus type: type 2 Diabetes mellitus extermination supervisor insulin use: without extermination supervisor use Diabetes mellitus complication status: without complication Additional Codes ERNESTO-7 Assessment Billing - ERNESTO-7 Assessment Tool: ERNESTO-7 Assessment 81385 ([id number]) PHQ-9 - 72726 - PHQ-9 Billing: Yes ([id number]) Time Spent (min) 30 Assessment & Plan Assessment & Plan (1) Physical exam: Code(s): Z00.00 - Encounter for general adult medical examination without abnormal findings Category: Medical (2) Diabetes mellitus: Comment: (T2DM) Code(s): E11.9 - Type 2 diabetes mellitus without complications Category: Medical Qualifiers: Diabetes mellitus type: type 2 Diabetes mellitus retirement insulin use: without retirement use Diabetes mellitus complication status: without complication Qualified Code(s): E11.9 - Type 2 diabetes mellitus without complications Plan I have adjusted the patient's diabetes management regimen to include Metformin at 500 mg twice daily and Ozempic at 1 mg, alongside Jardiance to keep glucose levels under control. Hypertension management will continue with Lisinopril 5 mg twice daily, given effective control of blood pressure measurements. The patient's hyperlipidemia is being managed with Atorvastatin. Given a family history of colon cancer, options for future screenings were discussed though declined. GERD symptoms are being managed with Omeprazole in the morning with occasional Famotidine as needed. I recommended smoking cessation and moderation of alcohol intake. The patient's allergies to aspirin and ibuprofen were reviewed, maintaining the current therapy. Cultural and lifestyle factors influencing healthcare management are accounted for and addressed during consultations. Patient was informed and verbally consented to the use of an ambient scribe for clinic note documentation during this visit. I informed the patient about the importance of managing diabetes, hypertension, and hyperlipidemia with current medications, emphasizing the effectiveness of Metformin, Ozempic, Jardiance, and Lisinopril. We discussed potential risks, such as unresolved colon cancer screenings, while respecting the patient's decision to delay further colonoscopy. Lifestyle changes, including smoking cessation and moderated alcohol intake, were advised to reduce cardiovascular risks, and allergy management was reaffirmed. Future follow-ups for symptom flare-ups and treatment evaluations were considered, with the understanding of anticipated outcomes and interventions they entail. Orders: Orders Lipid Panel Today E78.5 - Hyperlipidemia, unspecified Microalbumin, Random (w Creat) Today R80.9 - Proteinuria, unspecified Vitamin D 25-OH Total Today E55.9 - Vitamin D deficiency, unspecified Comprehensive [place]. Panel Fast Today E11.9 - Type 2 diabetes mellitus without complications Medications: New metformin 500 mg PO BID 90 days 180 tabs 1RF Discontinued metformin Discontinued Reason: Patient Completed Course 1,000 mg PO BID 60 tabs 6RF Patient Instructions: - Continue Metformin, Ozempic, Jardiance as per the current dosage schedule. - Lisinopril to be continued twice daily as previously prescribed. - Maintain daily Omeprazole for GERD symptom management, use Famotidine if needed. - Consider lifestyle modifications to reduce smoking and alcohol intake. - Continue observing allergy precautions with aspirin and ibuprofen.
[2024-12-17 14:33] VITALS: BP 136/82; BMI 31.6
--- OUTSIDE RECORDS SUMMARY | 2024-12-17 17:35 | XMS_ITS | Clinical Summary ---
Author Organization [facility] ity Address [address] [place] [address] Care Team Providers Care Esters And Emulsifiers Supervisor Name Role Phone Unavailable Primary Care Provider Unavailabl e Social History Tobacco Use Types Packs/Day Years Used Date Smoking Tobacco: Never Assessed Sex and Gender Information Value Date Recorded Sex Assigned at Not on file Legal Sex Male 5:44 AM EST Gender Identity Not on file Sexual Orientation Not on file Plan of Treatment Health Maintenance Due Date Last Done Comments DTaP,Tdap,and Td Vaccines (1 - Tdap) 1991 Hepatitis B Vaccines (1 of 3 - 19+ 3-dose series) 1991 Pneumococcal Vaccine: 50+ Ye ars (1 of 1 - PCV) 2022 Zoster Vaccines (1 of 2) 2022 COVID-19 Vaccine (1 - 2023-2 5 season) 2024 Influenza Vaccine (#1) 2024 HIB Vaccines Aged Out No longer eligi ble based on patient's age to complete this topic HPV Vaccines Aged Out No longer eligi ble based on patient's age to complete this topic Hepatitis A Vaccines Aged Out No long er eligible based on patient's age to complete this topic IPV Vaccines Aged Out No longer eligi ble based on patient's age to complete this topic MMR Vaccines Aged Out No longer eligi ble based on patient's age to complete this topic Meningococcal ACWY Vaccine Aged Out N o longer eligible based on patient's age to complete this topic Meningococcal B Vaccine Aged Out No l onger eligible based on patient's age to complete this topic Pneumococcal Vaccine: Pediat rics (0 to 5 Years) and At-Risk Patients (6 to 64 Years) Aged Out No longer eligible b ased on patient's age to complete this topic RSV Immunization Patients Un chrissy 20 months Aged Out No longer eligible b ased on patient's age to complete this topic Varicella Vaccines Aged Out No longer eligible based on patient's age to complete this topic
== END 2024-12-17 14:59 | disposition home or self-care (01) ==
LOC: HO.HMCH 14:27
PROVIDERS: PCP Internal Medicine; Visit Provider Internal Medicine
DX: Z00.00 Encounter for general adult medical examination without abnormal findings (principal); E11.9 Type 2 diabetes mellitus without complications

== ENCOUNTER → 2024-12-17 14:26 | Outpatient (BNVA) | payer OTHER, SELFPAY | PROVIDERS: PCP Internal Medicine; Visit Provider Internal Medicine | DX: Z00.00 Encounter for general adult medical examination without abnormal findings (principal); E11.9 Type 2 diabetes mellitus without complications; K21.9 Gastro-esophageal reflux disease without esophagitis; Z79.84 Long term (current) use of oral hypoglycemic drugs; E78.5 Hyperlipidemia, unspecified; R80.9 Proteinuria, unspecified; E55.9 Vitamin D deficiency, unspecified | CPT/HCPCS: 96127; 99396 ==